=== PATIENT | female | born 1955 | race Caucasian/White ===

== ENCOUNTER → 2017-06-20 06:04 | Outpatient (CLI) | payer OTHER, SELFPAY ==
[2017-06-20 07:47] LABS: Absolute Neutrophil Count 1.1 X10^3/uL (2.0-7.7); Basophil# 0.03 X10^3/uL; Basophil% 1.1 % (0-1); Eosinophil# 0.12 X10^3/uL; Eosinophils% 4.3 % (0-5); Hematocrit 39.5 % (37-47); Hemoglobin 12.9 g/dl (12.0-15.0); Mean Corp Hgb Conc 32.7 g/gl (32-36); Mean Corpuscular Hgb 29.7 pg (27.0-32.0); Mean Corpuscular Volume 90.8 fL (81-99); Mean Platelet Vol. 9.7 fl (6.2-12.0); Monocyte# 0.33 X10^3/uL; Monocyte% 11.8 % (0-10); Neutrophil # 1.11 X10^3/uL (2.7-7.7); Neutrophil % 39.8 % (47-70); Platelet Count 228 K/mm3 (150-450); Red Blood Count 4.35 M/mm3 (4.2-5.4); White Blood Count 2.8 K/mm3 (4.4-11.0)
[2017-06-20 07:56] LABS: POSITIVE COUNT NO; POSITIVE DIFFERENTIAL NO; POSITIVE MORPHOLOGY NO
[2017-06-20 08:06] LABS: AST(SGOT) 22 U/L (15-37); Alanine Aminotransfer ALT/SGPT 23 U/L (13-56); Albumin, Serum 3.6 g/dL (3.2-5.0); Alkaline Phosphatase 92 U/L (45-117); Anion Gap 7 (5-15); BUN 14 mg/dL (7-18); BUN/Creat Ratio 29.4 RATIO (10-20); Calcium,Total 8.4 mg/dL (8.5-10.1); Chloride 107 mmol/L (98-107); Cholesterol 189 mg/dL (200); Creatinine, Serum 0.48 mg/dL (0.55-1.02); EST Glomerular Filtration Rate 140 mL/min (>60); Est Glom Filt Rate - Afr Amer 170 mL/min (>60); Globulin 3.5 g/dL (2.2-4.2); Glucose 76 mg/dL (74-106); High Density Lipoprotein 60 mg/dL; Potassium 4.1 mmol/L (3.5-5.1); Protein, Total 7.1 g/dL (6.4-8.2); Sodium Level 142 mmol/L (136-145); Triglycerides 114 mg/dL; Very Low Density Lipoprotein 23 mg/dL (5-40)
== END ==
PROVIDERS: Family Provider Family Medicine; PCP Family Medicine; Visit Provider Family Medicine
DX: Z00.00 Encounter for general adult medical examination without abnormal findings (principal)
CPT/HCPCS: 36415; 80053; 80061; 85025

== ENCOUNTER → 2017-07-14 08:21 | Outpatient (CLI) | payer OTHER, SELFPAY ==
--- NOTE | 2017-07-14 08:23 | BI_ITS ---
MAMMOGRAPHY - BILATERAL SCREENING REASON FOR EXAM: Female, 62 years old. Routine annual screening examination. PERTINENT HISTORY: Mother with breast cancer. TECHNIQUE: Digital bilateral breast trent (3D mammographic acquisition) in the CC and MLO projections. 2-D mediolateral oblique (MLO) and craniocaudad (CC) views of both breasts were obtained. CAD: Full Field Digital Mammography with Computer Added Detection was performed. COMPARISON: Comparison is made with prior study dated April 12, 2016 and February 15, 2015. FINDINGS: Breast Composition: The breasts are heterogeneously dense, which may obscure small masses. There are no dominant masses or suspicious calcifications. No other significant abnormalities are identified. There has been no significant change since the prior study. BI/SCREENING MAMM (CAD), BILAT IMPRESSION: Stable bilateral screening mammogram. Yearly follow-up mammogram recommended. (A) ASSESSMENT CATEGORY: BIRADS Category 1: Negative. A letter regarding these results will be sent to the patient by the facility within 30 days. Approximately 10% of breast cancers are not detected by mammography. A normal mammogram should not delay biopsy of a clinically suspicious abnormality. [id number] Electronically Signed: Reese Bro MD at 12:42 EDT Tel [phone], Service support ,
--- NOTE | 2017-07-14 08:27 | BD_ITS ---
STUDY: DUAL ENERGY X-RAY ABSORPTIOMETRY / DXA REASON FOR EXAM: Female, 62 years old. The patient is postmenopausal. Loss of height of 0.5 inches. TECHNIQUE: Bone Mineral Density (BMD) measurements of lumbar spine and bilateral hips were obtained. COMPARISON: None. FINDINGS: Lumbar Spine (L1-L4): g/cm2 (0.916) / T-score (-2.2) / Z-score (-0.8) Findings are suggestive of osteopenia with a moderate fracture risk. Left Femur Total: g/cm2 (0.754) / T-score (-2.0) / Z-score (-0.9) Left Femoral Neck: g/cm2 (0.797) / T-score (-1.7) / Z-score (-0.4) Right Femur Total: g/cm2 (0.756) / T-score (-2.0) / Z-score (-0.9) Right Femoral Neck: g/cm2 (0.810) / T-score (-1.6) / Z-score (0.3) BD/Dexa Bone Density Study IMPRESSION: The patient is considered osteopenic as outlined below according to World Irvin Organization (WHO) criteria with a moderate fracture risk. Reference Information: The T-score is the number of standard deviations above or below the standard which is normal for young adults at their peak bone mineral density. The World Health Organization (WHO) interprets the T-scores as follows: Above -1 Normal bone density Between -1 and -2.5 Osteopenia Equal to / or below -2.5 Osteoporosis As a practical clinical guideline, osteopenia may be graded as follows: Mild -1 through -1.5 Moderate -1.6 through -2.0 Severe -2.1 through -2.4 The Z-score is the number of standard deviations above or below age-matched controls. A Z-score of less than -1.5 would be considered abnormal. References: 1. NIH Osteoporosis and Related Bone Diseases http://www.osteo.org 2. International Society for Clinical Densitometry http://www.iscd.org 3. National Osteoporosis Foundation http://www.nof.org Electronically Signed: Reese Bro MD at 9:12 EDT Tel [phone], Service support ,
== END ==
PROVIDERS: Family Provider Family Medicine; PCP Family Medicine; Visit Provider Family Medicine
DX: Z12.31 Encounter for screening mammogram for malignant neoplasm of breast (principal); M85.80 Other specified disorders of bone density and structure, unspecified site; N95.9 Unspecified menopausal and perimenopausal disorder
CPT/HCPCS: 77063; 77067; 77080

== ENCOUNTER → 2018-07-25 | Outpatient (CLI) | payer OTHER, SELFPAY ==
--- NOTE | 2018-07-25 07:19 | BI_ITS ---
MAMMOGRAPHY - BILATERAL SCREENING 3-D TOMOSYNTHESIS REASON FOR EXAM: Female, 63 years old. Bilateral Screening 3-D tomosynthesis PERTINENT HISTORY: No significant family history. TECHNIQUE: 2-D mammograms and 3-D Tomosynthesis of the breast (s) were performed. CAD was performed. COMPARISON: July 14, 2017. FINDINGS: The breast composition is heterogeneously dense that can obscure small breast masses. Scattered benign calcifications are seen. No dense spiculated masses or suspicious microcalcifications are identified. No architectural distortion is identified. There is no skin thickening or retraction. There has been no significant change since the prior study. BI/SCREENING MAMM (CAD), BILAT IMPRESSION: No mammographic signs of malignancy. Routine yearly mammograms recommended. ASSESSMENT CATEGORY: BIRADS Category 1: Negative. A letter regarding these results will be sent to the patient by the facility within 30 days. FOLLOW UP RECOMMENDATION: Yearly follow up mammogram recommended. (A) Approximately 10% of breast cancers are not detected by mammography. A normal mammogram should not delay biopsy of a clinically suspicious abnormality. Electronically Signed: Antonio De La O MD at 12:12 EDT , Service support ,
== END | disposition home or self-care (01) ==
LOC: OPBI 07:18
PROVIDERS: Family Provider Family Medicine; PCP Family Medicine; Referring Provider Family Medicine; Visit Provider Family Medicine
DX: Z12.31 Encounter for screening mammogram for malignant neoplasm of breast (principal)
CPT/HCPCS: 77063; 77067

== ENCOUNTER 2018-11-15 06:59 | Day surgery (SDC) | payer OTHER, SELFPAY ==
[2018-11-15] VITALS (8 sets, daily range): BP systolic 93–133; BP diastolic 63–78; PULSE 47–72; RESP 14–16; TEMP 36.7–36.8; O2SAT 93–100; BMI 21.7
--- NOTE | 2018-11-15 07:41 | H&P.OPEN ---
History of Present Illness Date of Admission: 11/15/18 The patient is a 63 year old F presents for screening colonoscopy. Patient last had a colonoscopy about 10 to 12 years ago at [facility]. Patient states she has bowel movements usually daily, denies any abdominal pain/nausea/vomiting. Patient denies any blood in her stool. Patient denies any family history of colon cancer. Past Medical/Surgical History - Planned Operation Planned Operative Procedure/s: CSCOPE OPEN ACCESS Date of Operative Procedure: 11/15/18 Permit Signed: No S.O.S: No Is This Patient Having a Total Joint: No - Previous Hospitalizations/Surgeries HX Hospitalizations: No HX of Surgeries: CSCOPE. LEFT KNEE ACL. FOOT SURGERY FOR BONE SPUR. LAPAROSCOPY Any Problems With Anesthesia: No You/Your Family Experience Fever (Hyperthermia) With Anes: No Cholinesterase deficiency: No - Cardiovascular Hx Chest Pain within Last 2 months: No Hx of Irregular Heartbeat and/or Afib: No - FUNCTIONAL HEART MURMUR Hx Heart Attack: No Hx Congestive Heart Failure: No Hx Rheumatic Fever: No Hx Hypertension: No Hx Internal Defibrillator: No Hx Pacemaker: No Hx Cardiac Catheterization: No Hx Cardiac Surgery/Stents/Etc.: No Hx Stress Test: No HX Edema: No Hx Pain in Legs when Walking/Leg Cramps: No - Respiratory Chronic Cough: No HX of Shortness of Breath: No Hoarseness: No Hx Chronic Obstructive Pulmonary Disease (COPD): No - 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 Hx Asthma: No Hx Emphysema: No Hx Sleep Apnea: No Hx Oxygen Use at Home: No Hx Respiratory Tract Infection/Cold (presently): No Do You Snore Loudly (louder than talking or can be heard): No Do You Often Feel Tired/ Fatigued/ Sleepy Dring Daytime?: No Has Anyone Observed You Stop Breathing During Sleep?: No Result (for STOP score): Negative Hx Smoking: No Smoking Status: Never smoker - Gastrointestinal Hx Gastroesophageal Reflux: No - OCC HEARTBURN Hx Gastrointestinal Disorders: No Hx Gastrointestinal Bleed: No Hx Ulcer: No Hx Hiatal Hernia: No Difficulty Chewing/Swallowing: No Recent Onset of Swallowing Problems: No Special diet followed at home: No Hx Unplanned Weight Loss of 20#: No HX Unplanned Weight Gain of 20#: No - Neurological Hx Seizures: No HX Syncope/Blackout Spells/Unconsciousness: No Hx CVA/Stroke: No Hx Transient Ischemic Attacks (TIA): No Hx Multiple Sclerosis: No Hx Parkinson's Disease: No Hx Head/Neck Injury: No Hx Headaches: No Hx Back Injury/Pain: Yes - LOW BACK PAIN AT TIMES Recent Onset of Speech Difficulty: No Restless Legs: No Does patient have nerve stimulator: No Patient instructed to have device shut off: No Rep notified?: No - Blood Disorder Hx Leukemia: No Bleeding Tendencies: No Hx Deep Vein Thrombosis: No Hx High Cholesterol: No Blood Transmitted Disease: No Hx Hepatitis: No Hx Cirrhosis: No Hx Anemia: No Hx Blood Disorders: No - Reproduction : No Is Patient Lactating: No Hx Hysterectomy: No Hx Tubal Ligation: No Are You Post Menopause: Yes - Genitourinary Hx Renal Disease: No - Musculoskeletal Hx Arthritis: Yes Hx Rheumatoid Arthritis: No Hx Gout: No Recent Onset of an Orthopedic Problem: No - Endocrine Hx Diabetes: No Thyroid Disease: No Hx Steroid Therapy: No - Psycho/Social Hx Substance Use: No Hx Alcohol Use: Yes - OCC Hx Anxiety: No Hx Depression: Yes - ON MED - Miscellaneous Hx Cancer: No Recent Exposure to Contagious Disease: No Active MRSA: No Hx of C-Diff: No Any Loose Teeth: No Allergies codeine Adverse Reaction (Verified 11/15/18 07:12) FAINT - Discharge Is Pt Admitted From a [facility], or a Skilled Nursing: No Who Could Help: FAMILY After D/C, Where Do you Plan to Go: Return Home - From the PAT History Number of Risk Factors: 3 - Physical Exam General: Alert, Oriented x3, Cooperative, No apparent distress HEENT: Atraumatic Lungs: Normal air movement Cardiovascular: Regular rate Abdomen: Soft, Non Tender, Non-Distended Extremities: No clubbing, No cyanosis, No edema Neurological: Cranial nerves II-XII grossly intact Psych/Mental Status: Normal Affect Vital Signs Temp Pulse Resp BP Pulse Ox 98.3 F 72 16 133/78 H 100 11/15/18 07:16 11/15/18 07:16 11/15/18 07:16 11/15/18 07:16 11/15/18 07:16 Oxygen Delivery Method Room Air Weight: 126 lb 5.198 oz Body Mass Index (BMI) 21.7 Assessment/Plan All Active Problems (Last Reviewed 10/19/18 @ 12:00 by Gali Gonzalez) Segmental and somatic dysfunction of cervical region (Acute) Segmental and somatic dysfunction of thoracic region (Acute) Segmental and somatic dysfunction of lumbar region (Acute) 63-year-old female for screening for colon cancer Surgery Risks - Colonoscopy I discussed with the patient the risks of the procedure: Yes Risks Include but are not Limited To: Risks include but are not limited to: Bleeding, perforation requiring further surgery, inability to complete colonoscopy requiring barium enema. She had no further questions this time.
--- NOTE | 2018-11-15 08:34 | OP.ENDO_ITS ---
11/15/2018 Noemi Pruitt [address] [place] [address] Re : Colonoscopy procedure for Radha Cardona Dear Dr. Pruitt This procedure was performed on Thursday, November 15, 2018. My impressions and recommendations are as follows: Impressions : - The entire examined colon is normal on direct and retroflexion views. - No specimens collected. Recommendations : - Discharge patient to home. - Resume previous diet. - Continue present medications. - Repeat colonoscopy in 10 years for screening purposes. My findings are described in the full procedure note, which is enclosed. If I can be of further assistance, please feel free to contact me at Doctor phone number(s): , Work: . Sincerely, MD Annabel Antony MD 11/15/2018 8:34:26 AM This report has been signed electronically.
== END 2018-11-15 09:21 | disposition home or self-care (01) ==
LOC: EN 07:00 → AC 07:01
PROVIDERS: Family Provider Family Medicine; PCP Family Medicine; Referring Provider Family Medicine; Visit Provider Surgery
PROC: 0DJD8ZZ Inspection of Lower Intestinal Tract, Via Natural or Artificial Opening Endoscopic (ICD-10-PCS; CPT 45378; principal; 2018-11-15 07:55)
DX: Z12.11 Encounter for screening for malignant neoplasm of colon (principal); F32.9 Major depressive disorder, single episode, unspecified; Z79.899 Other long term (current) drug therapy
CPT/HCPCS: G0121; J7120; J2405

== ENCOUNTER → 2019-11-12 10:01 | Outpatient (CLI) | payer MEDICARE, SELFPAY ==
[2018-11-15 07:16] VITALS: BMI 21.7
[2019-11-12 13:00] LABS: Erythrocyte Sedimentation Rate 8 mm/hr (0-30)
[2019-11-12 13:01] LABS: Absolute Lymphocyte Count 0.99 X10^3/uL (0.83-4.51); Absolute Neutrophil Count 1.9 X10^3/uL (2.0-7.7); Basophil# 0.03 X10^3/uL; Basophil% 0.9 % (0-1); Eosinophil# 0.06 X10^3/uL; Eosinophils% 1.8 % (0-5); Hematocrit 38.2 % (37-47); Hemoglobin 12.8 g/dL (12.0-15.0); Lymphocyte # 0.99 X10^3/ul (4.0); Lymphocyte % 30.4 % (19-41); Mean Corp Hgb Conc 33.5 g/dL (32-36); Mean Corpuscular Hgb 30.3 pg (27.0-32.0); Mean Corpuscular Volume 90.3 fL (81-99); Mean Platelet Vol. 9.9 fl (6.2-12.0); Monocyte# 0.27 X10^3/uL; Monocyte% 8.3 % (0-10); NRBC Flagged by Analyzer 0 % (0-5); Neutrophil # 1.91 X10^3/uL (2.7-7.7); Neutrophil % 58.6 % (47-70); Platelet Count 246 K/mm3 (150-450); RBC Distribution Width CV 13.2 % (11.6-14.6); RBC Distribution Width SD 43.6 fl (35.1-43.9); Red Blood Count 4.23 M/mm3 (4.2-5.4); White Blood Count 3.3 K/mm3 (4.4-11.0)
[2019-11-12 13:09] LABS: Vitamin D,25 Hydroxy 42.5 ng/mL
[2019-11-12 13:19] LABS: ALB/GLOB Ratio 1.1 RATIO (0.9-2.4); AST(SGOT) 28 U/L (15-37); Alanine Aminotransfer ALT/SGPT 34 U/L (13-56); Albumin, Serum 3.8 g/dL (3.2-5.0); Alkaline Phosphatase 91 U/L (45-117); Anion Gap 7 (5-15); BUN 12 mg/dL (7-18); BUN/Creat Ratio 19.8 RATIO (10-20); CRP < 2.90 mg/L (0.0-3.0); Calcium,Total 8.5 mg/dL (8.5-10.1); Chloride 103 mmol/L (98-107); Cholesterol 223 mg/dL (200); EST Glomerular Filtration Rate 106 mL/min (>60); Est Glom Filt Rate - Afr Amer 128 mL/min (>60); Globulin 3.5 g/dL (2.2-4.2); Glucose 82 mg/dL (74-106); High Density Lipoprotein 60 mg/dL; Potassium 3.8 mmol/L (3.5-5.1); Protein, Total 7.3 g/dL (6.4-8.2); Sodium Level 139 mmol/L (136-145); Triglycerides 104 mg/dL; Uric Acid 3.2 mg/dL (2.6-6.0); Very Low Density Lipoprotein 21 mg/dL (5-40)
== END ==
PROVIDERS: PCP Family Medicine; Visit Provider Family Medicine
DX: M25.50 Pain in unspecified joint (principal); E78.5 Hyperlipidemia, unspecified; E55.9 Vitamin D deficiency, unspecified; R53.83 Other fatigue; Z51.81 Encounter for therapeutic drug level monitoring
CPT/HCPCS: 36415; 80053; 80061; 82306; 84550; 85025; 85652; 86140

== ENCOUNTER → 2019-11-29 15:12 | Outpatient (CLI) | payer MEDICARE, SELFPAY ==
[2018-11-15 07:16] VITALS: BMI 21.7
--- NOTE | 2019-11-29 10:00 | LES_PTH ---
PATIENT: LOURDES CARNES LOC: [facility] U#:[id number] AGE/SX: 69/F ROOM: RE11/29/[address]: Dr. Noemi Pruitt, : 1955 BED: DIS: SPEC #: [id number] RECD: 11/30/19 08:57 STATUS: ZAC REBECCA #: [id number] TESSA: 11/29/19 10:[address]: Noemi Pruitt DEPT: SURGICAL PATHOLOGY RECD BY: Warren Izquierdo Tissues: Skin of neck, NOS Procedures: Surgery Specimen Level IV HEADER OPERATION: Excision lesion right neck PRE-OP DIAGNOSIS: Rule out compound nevus vs atypical nevus TISSUE SUBMITTED: Right neck MICROSCOPIC DIAGNOSIS Skin lesion, right neck, excision: Polypoid seborrheic keratosis. AM:philomena 12/03/19 MICROSCOPIC DESCRIPTION Slides are reviewed. GROSS DESCRIPTION Received is one container labeled with the patient's name and not further designated. The specimen consists of an irregular fragment of light guthrie excised skin measuring 1 x 0.5 x 0.5 cm. The specimen is inked, bisected and totally submitted in one cassette. / AM:philmoena 11/30/19 TC:5 CPT: 33290
--- NOTE | 2019-11-29 15:14 | BI_ITS ---
MAMMOGRAPHY - BILATERAL SCREENING REASON FOR EXAM: Female, 64 years old. Routine annual screening examination. PERTINENT HISTORY: Mother with breast cancer. TECHNIQUE: Digital bilateral breast alec (3D mammographic acquisition) in the CC and MLO projections. 2-D mediolateral oblique (MLO) and craniocaudad (CC) views of both breasts were obtained. CAD: Full Field Digital Mammography with Computer Added Detection was performed. COMPARISON: Comparison is made with prior examination dated 07/25/2018 and 07/14/2017. FINDINGS: Breast Composition: The breasts are heterogeneously dense, which may obscure small masses. There are no dominant masses or suspicious calcifications. Stable benign-appearing bilateral axillary lymph. No other significant abnormalities are identified. There has been no significant change since the prior study. BI/SCREEN MAMM (CAD) W/ALEC BILAT IMPRESSION: Stable bilateral screening mammogram. Yearly follow-up mammogram recommended. (A) ASSESSMENT CATEGORY: BIRADS Category 2: Benign. A letter regarding these results will be sent to the patient by the facility within 30 days. Approximately 10% of breast cancers are not detected by mammography. A normal mammogram should not delay biopsy of a clinically suspicious abnormality. [id number] Electronically Signed: Reese Bro, at 8:34 EDT , Service support ,
--- NOTE | 2019-11-29 15:23 | BD_ITS ---
STUDY: DUAL ENERGY X-RAY ABSORPTIOMETRY / DXA REASON FOR EXAM: Female, 64 years old. HOME COMFORT ADVISOR -- DOES HIGH AMOUNT OF EXERCISE -- FAMILY HX OF OSTEO- MOTHER -- HX OF FOOT FX -- JAMIE OF 1 INCH TECHNIQUE: Bone Mineral Density (BMD) measurements of lumbar spine and bilateral hips were obtained. COMPARISON: Comparison is made with prior study dated 07/14/2017. FINDINGS: Lumbar Spine (L1-L4): g/cm2 (0.829) / T-score (-2.8) / Z-score (-1.2) Findings are suggestive of osteoporosis with a high fracture risk. Left Femur Total: g/cm2 (0.770) / T-score (-1.9) / Z-score (-0.7) Left Femoral Neck: g/cm2 (0.812) / T-score (-1.6) / Z-score (-0.1) Right Femur Total: g/cm2 (0.756) / T-score (-2.0) / Z-score (-0.8) Right Femoral Neck: g/cm2 (0.802) / T-score (-1.7) / Z-score (-0.2) The T-Scores on the most recent prior examination were: Lumbar Spine (L1-L4): There has been worsening of bone density since the previous examination. Left Femur Total: which represents an improvement of 2.1%. Right Femur Total: which represents no significant change. . BD/Dexa Bone Density Study IMPRESSION: The patient is considered osteoporotic as outlined below according to World Irvin Organization (WHO) criteria with a high fracture risk. There has been worsening of bone density since the previous examination. Reference Information: The T-score is the number of standard deviations above or below the standard which is normal for young adults at their peak bone mineral density. The World Health Organization (WHO) interprets the T-scores as follows: Above -1 Normal bone density Between -1 and -2.5 Osteopenia Equal to / or below -2.5 Osteoporosis As a practical clinical guideline, osteopenia may be graded as follows: Mild -1 through -1.5 Moderate -1.6 through -2.0 Severe -2.1 through -2.4 The Z-score is the number of standard deviations above or below age-matched controls. A Z-score of less than -1.5 would be considered abnormal. References: 1. NIH Osteoporosis and Related Bone Diseases http://www.osteo.org 2. International Society for Clinical Densitometry http://www.iscd.org 3. National Osteoporosis Foundation http://www.nof.org Electronically Signed: Reese Bro, at 15:47 EDT , Service support ,
== END ==
PROVIDERS: PCP Family Medicine; Referring Provider Family Medicine; Visit Provider Family Medicine
DX: Z12.31 Encounter for screening mammogram for malignant neoplasm of breast (principal); M81.0 Age-related osteoporosis without current pathological fracture
CPT/HCPCS: 77063; 77067; 77080; 88305

== ENCOUNTER → 2020-12-02 07:35 | Outpatient (CLI) | payer MEDICARE, SELFPAY ==
[2020-12-02 08:11] LABS: Absolute Lymphocyte Count 1.12 X10^3/uL (0.83-4.51); Absolute Neutrophil Count 1.4 X10^3/uL (2.0-7.7); Basophil# 0.03 X10^3/uL; Eosinophil# 0.06 X10^3/uL; Hematocrit 38.2 % (37-47); Hemoglobin 12.7 g/dL (12.0-15.0); Lymphocyte # 1.12 X10^3/ul (0.83-4.51); Lymphocyte % 37.8 % (19-41); Mean Corp Hgb Conc 33.2 g/dL (32-36); Mean Corpuscular Hgb 29.8 pg (27.0-32.0); Mean Corpuscular Volume 89.7 fL (81-99); Mean Platelet Vol. 9.7 fl (6.2-12.0); Monocyte# 0.34 X10^3/uL; Monocyte% 11.5 % (0-10); NRBC Flagged by Analyzer 0 % (0-5); Neutrophil # 1.41 X10^3/uL (2.7-7.7); Neutrophil % 47.7 % (47-70); Platelet Count 234 K/mm3 (150-450); RBC Distribution Width CV 12.9 % (11.6-14.6); RBC Distribution Width SD 42.4 fl (35.1-43.9); Red Blood Count 4.26 M/mm3 (4.2-5.4)
[2020-12-02 08:39] LABS: ALB/GLOB Ratio 1.1 RATIO (0.9-2.4); AST(SGOT) 18 U/L (15-37); Alanine Aminotransfer ALT/SGPT 25 U/L (13-56); Albumin, Serum 3.7 g/dL (3.2-5.0); Alkaline Phosphatase 91 U/L (45-117); Anion Gap 4 (5-15); BUN 14 mg/dL (7-18); BUN/Creat Ratio 26.7 RATIO (10-20); Calcium,Total 8.5 mg/dL (8.5-10.1); Chloride 105 mmol/L (98-107); Cholesterol 211 mg/dL (200); Creatinine, Serum 0.52 mg/dL (0.55-1.02); EST Glomerular Filtration Rate 124 mL/min (>60); Est Glom Filt Rate - Afr Amer 150 mL/min (>60); Globulin 3.5 g/dL (2.2-4.2); Glucose 85 mg/dL (74-106); High Density Lipoprotein 60 mg/dL; Potassium 3.8 mmol/L (3.5-5.1); Protein, Total 7.2 g/dL (6.4-8.2); Sodium Level 139 mmol/L (136-145); Triglycerides 84 mg/dL; Very Low Density Lipoprotein 17 mg/dL (5-40)
== END ==
PROVIDERS: PCP Family Medicine; Referring Provider Family Medicine; Visit Provider Family Medicine
DX: E78.5 Hyperlipidemia, unspecified (principal); Z51.81 Encounter for therapeutic drug level monitoring
CPT/HCPCS: 36415; 80053; 80061; 85025

== ENCOUNTER → 2020-12-17 12:20 | Outpatient (CLI) | payer MEDICARE, SELFPAY ==
--- NOTE | 2020-12-17 12:21 | BI_ITS ---
MAMMOGRAPHY - BILATERAL SCREENING REASON FOR EXAM: Female, 65 years old. Routine annual screening examination. PERTINENT HISTORY: Mother with breast cancer. TECHNIQUE: Digital bilateral breast alec (3D mammographic acquisition) in the CC and MLO projections. 2-D mediolateral oblique (MLO) and craniocaudad (CC) views of both breasts were obtained. CAD: Full Field Digital Mammography with Computer Added Detection was performed. COMPARISON: Comparison is made with prior study dated 11/29/2019 and 07/25/2018. FINDINGS: Breast Composition: The breasts are heterogeneously dense, which may obscure small masses. There are no dominant masses or suspicious calcifications. No other significant abnormalities are identified. There has been no significant change since the prior study. BI/SCRN MAMM (CAD)W/ALEC BILAT IMPRESSION: Stable bilateral screening mammogram. Yearly follow-up mammogram recommended. (A) ASSESSMENT CATEGORY: BIRADS Category 1: Negative. A letter regarding these results will be sent to the patient by the facility within 30 days. Approximately 10% of breast cancers are not detected by mammography. A normal mammogram should not delay biopsy of a clinically suspicious abnormality. [id number] Electronically Signed: Reese Bro MD at 13:07 EDT , Service support ,
== END ==
PROVIDERS: PCP Family Medicine; Referring Provider Family Medicine; Visit Provider Family Medicine
DX: Z12.31 Encounter for screening mammogram for malignant neoplasm of breast (principal)
CPT/HCPCS: 77063; 77067

== ENCOUNTER 2022-02-02 10:49 | Outpatient (CLI) | payer MEDICARE, SELFPAY ==
--- NOTE | 2022-02-02 10:51 | BI_ITS ---
MAMMOGRAPHY - BILATERAL SCREENING REASON FOR EXAM: Female, 66 years old. Routine annual screening examination. PERTINENT HISTORY: Mother with breast cancer. TECHNIQUE: Digital bilateral breast alec (3D mammographic acquisition) in the CC and MLO projections. 2-D mediolateral oblique (MLO) and craniocaudad (CC) views of both breasts were obtained. CAD: Full Field Digital Mammography with Computer Added Detection was performed. COMPARISON: Comparison is made with prior study dated 12/17/2020 and 11/29/2019. FINDINGS: Breast Composition: The breasts are heterogeneously dense, which may obscure small masses. There are no dominant masses or suspicious calcifications. No other significant abnormalities are identified. There has been no significant change since the prior study. BI/SCRN MAMM (CAD)W/ALEC BILAT IMPRESSION: Stable bilateral screening mammogram. Yearly follow-up mammogram recommended. (A) ASSESSMENT CATEGORY: BIRADS Category 1: Negative. A letter regarding these results will be sent to the patient by the facility within 30 days. Approximately 10% of breast cancers are not detected by mammography. A normal mammogram should not delay biopsy of a clinically suspicious abnormality. [id number] Electronically Signed: Reese Bro MD at 12:41 EDT ,
--- NOTE | 2022-02-02 10:57 | BD_ITS ---
STUDY: DUAL ENERGY X-RAY ABSORPTIOMETRY / DXA REASON FOR EXAM: Female, 66 years old. [id number] TECHNIQUE: Bone Mineral Density (BMD) measurements of lumbar spine and bilateral hips were obtained. COMPARISON: Comparison is made with prior study 11/29/2019. FINDINGS: Lumbar Spine (L1-L4): g/cm2 (0.758) / T-score (-2.6) / Z-score (-0.7) Findings are suggestive of osteoporosis with a high fracture risk. Left Femur Total: g/cm2 (0.721) / T-score (-1.8) / Z-score (-0.4) Left Femoral Neck: g/cm2 (0.605) / T-score (-2.2) / Z-score (-0.5) Right Femur Total: g/cm2 (0.708) / T-score (-1.9) / Z-score (-0.5) Right Femoral Neck: g/cm2 (0.574) / T-score (-2.5) / Z-score (-0.8) The T-Scores on the most recent prior examination were: Lumbar Spine (L1-L4): There has been worsening of bone density since the previous examination. Left Femur Total: which represents an improvement of 1.4%. Right Femur Total: which represents an improvement of 1.6%. BD/Dexa Bone Density Study IMPRESSION: The patient is considered osteoporotic as outlined below according to World Irvin Organization (WHO) criteria with a high fracture risk. There has been improvement of bone density since the previous examination. Reference Information: The T-score is the number of standard deviations above or below the standard which is normal for young adults at their peak bone mineral density. The World Health Organization (WHO) interprets the T-scores as follows: Above -1 Normal bone density Between -1 and -2.5 Osteopenia Equal to / or below -2.5 Osteoporosis As a practical clinical guideline, osteopenia may be graded as follows: Mild -1 through -1.5 Moderate -1.6 through -2.0 Severe -2.1 through -2.4 The Z-score is the number of standard deviations above or below age-matched controls. A Z-score of less than -1.5 would be considered abnormal. References: 1. NIH Osteoporosis and Related Bone Diseases www osteo.org 2. International Society for Clinical Densitometry www iscd.org 3. National Osteoporosis Foundation www nof.org Electronically Signed: Reese Bro MD at 9:21 EDT ,
[2022-02-02 11:57] LABS: Absolute Lymphocyte Count 1.17 X10^3/uL (0.83-4.51); Absolute Neutrophil Count 1.7 X10^3/uL (2.0-7.7); Basophil# 0.05 X10^3/uL; Basophil% 1.5 % (0-1); Eosinophil# 0.07 X10^3/uL; Eosinophils% 2.1 % (0-5); Hematocrit 37.2 % (37-47); Lymphocyte # 1.17 X10^3/ul (0.83-4.51); Lymphocyte % 35.1 % (19-41); Mean Corp Hgb Conc 34.9 g/dL (32-36); Mean Corpuscular Hgb 31.2 pg (27.0-32.0); Mean Corpuscular Volume 89.2 fL (81-99); Mean Platelet Vol. 9.5 fl (6.2-12.0); NRBC Flagged by Analyzer 0 % (0-5); Neutrophil # 1.74 X10^3/uL (2.7-7.7); Neutrophil % 52.3 % (47-70); Platelet Count 229 K/mm3 (150-450); RBC Distribution Width CV 12.8 % (11.6-14.6); RBC Distribution Width SD 42.1 fl (35.1-43.9); Red Blood Count 4.17 M/mm3 (4.2-5.4); White Blood Count 3.3 K/mm3 (4.4-11.0)
[2022-02-02 12:17] LABS: AST(SGOT) 23 U/L (15-37); Alanine Aminotransfer ALT/SGPT 24 U/L (13-56); Albumin, Serum 3.7 g/dL (3.2-5.0); Alkaline Phosphatase 105 U/L (45-117); Anion Gap 5 (5-15); BUN 12 mg/dL (7-18); BUN/Creat Ratio 22.4 RATIO (10-20); Calcium,Total 8.8 mg/dL (8.5-10.1); Chloride 102 mmol/L (98-107); Cholesterol 215 mg/dL (200); Creatinine, Serum 0.54 mg/dL (0.55-1.02); EST Glomerular Filtration Rate 121 mL/min (>60); Est Glom Filt Rate - Afr Amer 146 mL/min (>60); Globulin 3.6 g/dL (2.2-4.2); Glucose 87 mg/dL (74-106); High Density Lipoprotein 65 mg/dL; Potassium 3.9 mmol/L (3.5-5.1); Protein, Total 7.3 g/dL (6.4-8.2); Sodium Level 136 mmol/L (136-145); Triglycerides 140 mg/dL; Very Low Density Lipoprotein 28 mg/dL (5-40)
== END 2022-02-02 23:59 | disposition home or self-care (01) ==
PROVIDERS: PCP Family Medicine; Visit Provider Family Medicine
DX: Z12.31 Encounter for screening mammogram for malignant neoplasm of breast (principal); M81.0 Age-related osteoporosis without current pathological fracture; Z51.81 Encounter for therapeutic drug level monitoring
CPT/HCPCS: 36415; 77063; 77067; 77080; 80053; 80061; 85025

== ENCOUNTER → 2023-02-11 | Outpatient (CLI) | payer MEDICARE, SELFPAY ==
[2023-02-11 12:41] LABS: Absolute Lymphocyte Count 1.15 X10^3/uL (0.83-4.51); Absolute Neutrophil Count 1.5 X10^3/uL (2.0-7.7); Basophil# 0.03 X10^3/uL; Eosinophil# 0.09 X10^3/uL; Eosinophils% 2.9 % (0-5); Hematocrit 40.3 % (37-47); Lymphocyte # 1.15 X10^3/ul (0.83-4.51); Lymphocyte % 37.5 % (19-41); Mean Corp Hgb Conc 32.3 g/dL (32-36); Mean Corpuscular Volume 93.1 fL (81-99); Monocyte# 0.34 X10^3/uL; Monocyte% 11.1 % (0-10); NRBC Flagged by Analyzer 0 % (0-5); Neutrophil # 1.46 X10^3/uL (2.7-7.7); Neutrophil % 47.5 % (47-70); Platelet Count 261 K/mm3 (150-450); RBC Distribution Width CV 13.1 % (11.6-14.6); RBC Distribution Width SD 44.8 fl (35.1-43.9); Red Blood Count 4.33 M/mm3 (4.2-5.4); White Blood Count 3.1 K/mm3 (4.4-11.0)
[2023-02-11 13:13] LABS: AST(SGOT) 22 U/L (15-37); Alanine Aminotransfer ALT/SGPT 22 U/L (13-56); Albumin, Serum 3.5 g/dL (3.2-5.0); Alkaline Phosphatase 92 U/L (45-117); Anion Gap 5 (5-15); BUN 14 mg/dL (7-18); BUN/Creat Ratio 25.5 RATIO (10-20); Calcium,Total 8.7 mg/dL (8.5-10.1); Chloride 105 mmol/L (98-107); Cholesterol 209 mg/dL (200); Creatinine, Serum 0.55 mg/dL (0.55-1.02); EST Glomerular Filtration Rate 117 mL/min (>60); Est Glom Filt Rate - Afr Amer 141 mL/min (>60); Globulin 3.6 g/dL (2.2-4.2); Glucose 92 mg/dL (74-106); High Density Lipoprotein 61 mg/dL; Protein, Total 7.1 g/dL (6.4-8.2); Sodium Level 140 mmol/L (136-145); Triglycerides 93 mg/dL; Very Low Density Lipoprotein 19 mg/dL (5-40)
== END | disposition home or self-care (01) ==
LOC: BFHLAB 09:01
PROVIDERS: PCP Family Medicine; Referring Provider Family Medicine; Visit Provider Family Medicine
DX: E78.5 Hyperlipidemia, unspecified (principal); Z51.81 Encounter for therapeutic drug level monitoring
CPT/HCPCS: 36415; 80053; 80061; 85025

== ENCOUNTER → 2024-02-22 | Outpatient (CLI) | payer MEDICARE, SELFPAY ==
--- NOTE | 2024-02-22 15:21 | BI_ITS ---
MAMMOGRAPHY - BILATERAL SCREENING REASON FOR EXAM: Female, 68 years old. Routine annual screening examination. PERTINENT HISTORY: Mother with breast cancer. TECHNIQUE: Digital bilateral breast alec (3D mammographic acquisition) in the CC and MLO projections. 2-D mediolateral oblique (MLO) and craniocaudad (CC) views of both breasts were obtained. CAD: Full Field Digital Mammography with Computer Added Detection was performed. COMPARISON: Comparison is made with prior study February 02, 2022 and December 17, 2020. FINDINGS: Breast Composition: The breasts are heterogeneously dense, which may obscure small masses. There are no dominant masses or suspicious calcifications. No other significant abnormalities are identified. There has been no significant change since the prior study. BI/SCRN MAMM (CAD)W/ALEC BILAT IMPRESSION: Stable bilateral screening mammogram. Yearly follow-up mammogram recommended. (A) ASSESSMENT CATEGORY: BIRADS Category 1: Negative. A letter regarding these results will be sent to the patient by the facility within 30 days. Approximately 10% of breast cancers are not detected by mammography. A normal mammogram should not delay biopsy of a clinically suspicious abnormality. [id number] Electronically Signed: Reese Bro MD at 8:37 EST ,
== END | disposition home or self-care (01) ==
LOC: OPBI 15:20
PROVIDERS: PCP Family Medicine; Referring Provider Family Medicine; Visit Provider Family Medicine
DX: Z12.31 Encounter for screening mammogram for malignant neoplasm of breast (principal)
CPT/HCPCS: 77063; 77067

== ENCOUNTER → 2025-02-01 | Outpatient (CLI) | payer MEDICARE, SELFPAY ==
[2025-02-01 08:20] LABS: Hematocrit 41.0 % (37-47); Hemoglobin 13.6 g/dL (12.0-15.0); Immature Granulocytes Count 0.010 X10^3/uL (0.0-0.0); Mean Corp Hgb Conc 33.2 g/dL (32-36); Mean Corpuscular Volume 89.9 fL (81-99); Mean Platelet Vol. 9.6 fl (6.2-12.0); NRBC Flagged by Analyzer 0 % (0-5); Platelet Count 258 K/mm3 (150-450); RBC Distribution Width CV 12.6 % (11.6-14.6); RBC Distribution Width SD 41.5 fl (35.1-43.9); Red Blood Count 4.56 M/mm3 (4.2-5.4); White Blood Count 3.6 K/mm3 (4.4-11.0)
[2025-02-01 08:51] LABS: AST(SGOT) 29 U/L (<=31); Alanine Aminotransfer ALT/SGPT 22 U/L (<=34); Albumin, Serum 4.4 g/dL (3.4-4.8); Alkaline Phosphatase 101 U/L (35-104); Anion Gap 9 (5-15); BUN 14 mg/dL (4-19); BUN/Creat Ratio 27.2 RATIO (10-20); Calcium,Total 9.1 mg/dL (7.6-11.0); Carbon Dioxide 27.9 mmol/L (21.0-32.0); Chloride 102 mmol/L (98-108); Cholesterol 239 mg/dL (<=200); Free T3 2.9 pg/mL (2.18-3.98); Globulin 3.0 g/dL (2.2-4.2); Glucose 83 mg/dL (70-99); Low Density Lipoprotein Calc. 156 mg/dL; Potassium 4.2 mmol/L (3.3-5.1); Triglycerides 163 mg/dL; Very Low Density Lipoprotein 33 mg/dL (5-40); cholesterol:hdl ratio screen 4.43
[2025-02-04 15:08] LABS: Carbohydrate Ag 19-9 2261 32 U/mL (0-35); Carcinoembryonic Antigen 1.7 ng/mL (0.0-4.7)
== END | disposition home or self-care (01) ==
LOC: LAB 07:17
PROVIDERS: PCP Family Medicine; Referring Provider Family Medicine; Visit Provider Family Medicine
DX: E03.9 Hypothyroidism, unspecified (principal); R10.9 Unspecified abdominal pain; Z51.81 Encounter for therapeutic drug level monitoring; E78.5 Hyperlipidemia, unspecified; Q45.3 Other congenital malformations of pancreas and pancreatic duct; R53.83 Other fatigue
CPT/HCPCS: 36415; 80053; 80061; 82378; 84439; 84443; 84481; 85025; 86301

== ENCOUNTER → 2025-02-22 | Outpatient (CLI) | payer MEDICARE, SELFPAY ==
--- NOTE | 2025-02-22 07:19 | BI_ITS ---
EXAM: SCRN MAMM (CAD)W/ALEC BILAT DATE: 02/22/2025 CLINICAL HISTORY: F, Age 69 y/o , SCREENING TECHNIQUE: Procedure Code: [id number] Modality: MG Procedure: SCRN MAMM (CAD)W/ALEC BILAT COMPARISON: Prior exam(s) were compared FINDINGS: TISSUE DENSITY: The breasts are heterogeneously dense, which may obscure small masses. Bilateral Breast Mammographic Findings: No significant masses, calcifications or other abnormalities are identified. BI/SCRN MAMM (CAD)W/ALEC BILAT IMPRESSION: No mammographic evidence of malignancy in either breast. OVERALL FINAL ASSESSMENT BI-RADS 1: NEGATIVE. RECOMMENDATION: Routine annual follow-up in 1 Year Additional Recommendation none A letter with findings and recommendations will be mailed to the patient. Reading Location: [id number]
--- OUTSIDE RECORDS SUMMARY | 2025-02-22 07:36 | XMS RPT_ITS | CCD ---
Author Organization [facility] Care Team Providers Care Eeg Tech Name Role Phone Mirian Carrillo Unavailable Unavailable Mirian Carrillo Unavailable Unavailable Mirian Carrillo Unavailable Unavailable Antoinette Butler DC Unavailable Dr. Noemi Pruitt Primary Care Provider Dr. Noemi Pruitt Referring Provider [phone] Antoinette Butler Attending Provider [phone] Malys, Noemi Attending Unavailable Malys, Noemi Referring Unavailable Malys, Noemi Primary Care Unavailable Malys, Noemi Attending Unavailable Malys, Noemi Referring Unavailable Malys, Noemi Primary Care Unavailable Malys, Noemi Attending Unavailable Malys, Noemi Referring Unavailable Malys, Noemi Primary Care Unavailable Allergies Allergy Classification Reported Allergen(s) Allergy Type Date of Onset Reaction(s) Facility (5 sources) codeine drug allergy Faints Pulmonary Medicine [facility] Work Phone: (2 sources) Codeine Drug Allergy 01-25-2022 [facility] (1 source) Codeine Drug Allergy 01-03-2024 [facility] Repository Medications Current Medications Medication Drug Class(es) Dates Sig (Normalized) Sig (Original) citalopram 20 mg oral tablet (7 sources) Serotonin Reuptake Inhibitor Start: 06-05-2014 take 20 mg by mouth once daily Citalopram Active 20 MG PO DAILY February 12, 2015 12:00am fexofenadine hydrochloride 60 mg oral tablet (12 sources) Histamine-1 Receptor Antagonist Start: 06-02-2017 take 1 tablet by mouth twice daily Fexofenadine (Alejandra Allergy) 60 mg tablet Active 60 MG PO TWICE A DAY June 02, 2017 12:00am Start: 06-05-2014 take 1 tablet by shashank once daily as needed ALEJANDRA ALLERGY 180 MG TABS One tablet by mouth daily as needed for allergies FEXOFENADINE HCL [id number] Noemi Pruitt DO 12 hr guaiFENesin 600 mg extended release oral tablet (2 sources) Start: 06-02-2017 take 1 tablet by mouth once, then take 1 tablet by mouth every twelve hours Guaifenesin (Mucinex) 600 mg tablet extended release 12hr Active 600 MG PO ONCE June 02, 2017 12:00am ibuprofen 200 mg oral capsule (12 sources) Nonsteroidal Anti-inflammatory Drug Start: 06-02-2017 Ibuprofen Active 200 MG PO NEEDED June 02, 2017 12:00am Start: 01-30-2015 End: 02-20-2015 take 1 tablet by mouth four times daily as needed IBUPROFEN 800 MG TABS One tablet by mouth four times daily as needed IBUPROFEN [id number] Sony Carter DO IBUPROFEN CAPS p rn IBUPROFEN CAPS [phone] Matt Wilson Completed/Discontinued Medications Medication Drug Class(es) Dates Sig (Normalized) Sig (Original) ascorbic acid (5 sources) VITAMIN C TABS ASCORBIC ACID TABS [id number] Matt Wilson predniSONE 20 mg oral tablet (10 sources) Corticosteroid Start: 02-03-2015 End: 02-15-2015 PREDNISONE 20 MG TABS 3 tabs for 3 days, 2 tabs x 3 days, 1 tab x 3 days, 1/2 tab x 4 days PREDNISONE [id number] Sony Carter DO Start: 01-13-2015 End: 01-22-2015 PREDNISONE 20 MG TABS 2 tabs x 3 days, 1 tab x 3 days, 1/2 tab x 4 days PREDNISONE [id number] Sony Carter DO triamcinolone acetonide 5 mg/ml topical cream (10 sources) Corticosteroid Start: 01-13-2015 End: 05-22-2015 TRIAMCINOLONE ACETONIDE 0.5 % CREA apply to affected area twice daily TRIAMCINOLONE ACETONIDE [id number] Sony Carter DO Problems Active Problems Problem Classification Problem Date Documented Da te Episodic/Chronic Mood disorders (5 sources) Depressive disorder; Translations: [Major depressive disorder, single episode, unspecified] 06-05-2014 Chronic Other bone disease and musculoskeletal deformities (14 sources) Segmental and somatic dysfunction; Translations: [Segmental and somatic dysfunction of cervical region] Onset: 04-29-2016 04-29-2016 Episodic Other bone disease and musculoskeletal deformities (2 sources) Segmental and somatic dysfunction of cervical region; Translations: [Nonallopathic lesions, cervical region] Episodic Other bone disease and musculoskeletal deformities (2 sources) Segmental and somatic dysfunction of lumbar region; Translations: [Nonallopathic lesions, lumbar region] Episodic Other bone disease and musculoskeletal deformities (2 sources) Segmental and somatic dysfunction of thoracic region; Translations: [Nonallopathic lesions, thoracic region] Episodic Other screening for suspected conditions (not mental disorders or infectious disease) (2 sources) Encounter for screening mammogram for malignant neoplasm of breast; Translations: [Encounter for screening mammogram for malignant neoplasm of breast] Onset: 03-22-2024 Episodic Spondylosis; intervertebral disc disorders; other back problems (4 sources) Backache; Translations: [Dorsalgia, unspecified] Episodic Thyroid disorders (1 source) Hypothyroidism, unspecified; Translations: [Hypothyroidism, unspecified] Onset: 02-11-2025 Chronic Unclassified (3 sources) Screening for malignant neoplasm of breast ; Translations: [Other specified health status] Onset: 01-30-2015 01-30-2015 Unclassified (2 sources) Screening - health check; Translations: [Encounter for general adult medical examination without abnormal findings] Onset: 03-03-2015 03-03-2015 Past or Other Problems Problem Classification Problem Date Documented Da te Episodic/Chronic Allergic reactions (5 sources) Dermatitis; Translations: [Dermatitis, unspecified] Onset: 01-13-2015 Resolved: 01-27-2015 01-13-2015 Episodic Immunizations and screening for infectious disease (5 sources) Needs influenza immunization; Translations: [Underimmunization status] Onset: 03-03-2015 03-03-2015 Episodic Medical examination/evaluation (3 sources) Encounter for general adult medical examination without abnormal findings; Translations: [Encounter for general adult medical examination without abnormal findings] Onset: 03-03-2015 03-03-2015 Episodic Other bone disease and musculoskeletal deformities (14 sources) Osteopenia; Translations: [Segmental and somatic dysfunction] Onset: 06-05-2014 06-05-2014 Episodic Other inflammatory condition of skin (5 sources) Erythema nodosum; Translations: [Erythema nodosum] Onset: 01-30-2015 01-30-2015 Episodic Other lower respiratory disease (5 sources) Lung mass; Translations: [Other nonspecific abnormal finding of lung field] Onset: 01-31-2015 01-31-2015 Episodic Skin and subcutaneous tissue infections (5 sources) Abscess of axilla; Translations: [Cutaneous abscess of left axilla] Onset: 01-13-2015 Resolved: 01-27-2015 01-13-2015 Episodic Results Test Name Value Interpretation Reference Range Facility CA 19-9 Serial Monitoron CA 19-9 32 U/mL Normal 0-35 [facility] Comment on above: Result Comment: [facility] Electrochemiluminescence Immunoassay (ECLIA) Values obtained with different assay methods or kits cannot be used interchangeably. Results cannot be interpreted as absolute evidence of the presence or absence of malignant disease. Performed By: #### L 3100.2300, L100.0100, L501.9520, L500.4100, L501.16829, L500.4050, L506.0400, L3100.5017 #### [facility] [address] [facility] [facility] [place], [place], [id number] Carcinoembryonic Antigenon 1 04-06-2024 CEA 1.7 ng/mL Normal 0.0-4.7 [facility] Comment on above: Result Comment: Nons mokers <3.9 Smokers <5.6 [facility] Electrochemiluminescence Immunoassay (ECLIA) Values obtained with different assay methods or kits cannot be used interchangeably. Results cannot be interpreted as absolute evidence of the presence or absence of malignant disease. Performed at: [address] [id number] Can Line Examiner: Tommy Barr PhD, Phone: [phone] Performed By: #### L 3100.2300, L100.0100, L501.9520, L500.4100, L501.07103, L500.4050, L506.0400, L3100.5017 #### [facility] [address] [place], [address] CBC W/Diff, Automatedon 10-3 -2024 Absolute Lymph 1.56 X10 3/uL Normal 0.83-4.51 [facility] Comment on above: Performed By: #### L 3100.2300, L100.0100, L501.9520, L500.4100, L501.51414, L500.4050, L506.0400, L3100.5017 #### [facility] [address] [place], [address] Absolute Neut 1.5 X10 3/uL Low 2.0-7.7 [facility] Comment on above: Performed By: #### L 3100.2300, L100.0100, L501.9520, L500.4100, L501.06486, L500.4050, L506.0400, L3100.5017 #### [facility] [address] [place], [address] Basophils/100 WBC (Bld) 1.1 % High 0-1 [facility] Comment on above: Performed By: #### L 3100.2300, L100.0100, L501.9520, L500.4100, L501.98074, L500.4050, L506.0400, L3100.5017 #### [facility] [address] [place], [address] Eosinophils/100 WBC (Bld) 4.2 % Normal 0-5 [facility] Comment on above: Performed By: #### L 3100.2300, L100.0100, L501.9520, L500.4100, L501.93945, L500.4050, L506.0400, L3100.5017 #### [facility] [address] [place], [address] Erythrocyte distribution width (RBC) [Ratio] 12.6 % Normal 11.6-14.6 [facility] Comment on above: Performed By: #### L 3100.2300, L100.0100, L501.9520, L500.4100, L501.43253, L500.4050, L506.0400, L3100.5017 #### [facility] [address] [place], [address] Hematocrit (Bld) [Volume fraction] 41.0 % Normal 37-47 [facility] Comment on above: Performed By: #### L 3100.2300, L100.0100, L501.9520, L500.4100, L501.90389, L500.4050, L506.0400, L3100.5017 #### [facility] [address] [facility] [place], [address] Hemoglobin (Bld) [Mass/Vol] 13.6 g/dL Normal 12.0-15.0 [facility] Comment on above: Performed By: #### L 3100.2300, L100.0100, L501.9520, L500.4100, L501.06504, L500.4050, L506.0400, L3100.5017 #### [facility] [address] [facility] [place], [address] IG% 0.300 Normal 0.0-0.9 [facility] Comment on above: Result Comment: IG% - Immature Granulocytes (promyelocytes, myelocytes and metamyelocytes) > 1% indicates that a LEFT SHIFT is Present. Performed By: #### L 3100.2300, L100.0100, L501.9520, L500.4100, L501.14512, L500.4050, L506.0400, L3100.5017 #### [facility] [address] [facility] [place], [address] Lymphocytes/100 WBC (Bld) 43.3 % High 19-41 [facility] Comment on above: Performed By: #### L 3100.2300, L100.0100, L501.9520, L500.4100, L501.80802, L500.4050, L506.0400, L3100.5017 #### [facility] [address] [place], [address] MCH (RBC) [Entitic mass] 29.8 pg Normal 27.0-32.0 [facility] Comment on above: Performed By: #### L 3100.2300, L100.0100, L501.9520, L500.4100, L501.48618, L500.4050, L506.0400, L3100.5017 #### [facility] [address] [place], [address] MCHC (RBC) [Mass/Vol] 33.2 g/dL Normal 32-36 [facility] Comment on above: Performed By: #### L 3100.2300, L100.0100, L501.9520, L500.4100, L501.04778, L500.4050, L506.0400, L3100.5017 #### [facility] [address] [place], [address] MCV (RBC) [Entitic vol] 89.9 fL Normal 81-99 [facility] Comment on above: Performed By: #### L 3100.2300, L100.0100, L501.9520, L500.4100, L501.25041, L500.4050, L506.0400, L3100.5017 #### [facility] [address] [place], [address] Monocytes/100 WBC (Bld) 10.3 % High 0-10 [facility] Comment on above: Performed By: #### L 3100.2300, L100.0100, L501.9520, L500.4100, L501.05235, L500.4050, L506.0400, L3100.5017 #### [facility] [address] [place], [address] Neutrophils/100 WBC (Bld) 40.8 % Low 47-70 [facility] Comment on above: Performed By: #### L 3100.2300, L100.0100, L501.9520, L500.4100, L501.49580, L500.4050, L506.0400, L3100.5017 #### [facility] [address] [place], [address] Nucleated RBC (Bld) [#/Vol] 0 10*3/uL Normal 0-5 [facility] Comment on above: Performed By: #### L 3100.2300, L100.0100, L501.9520, L500.4100, L501.55913, L500.4050, L506.0400, L3100.5017 #### [facility] [address] [place], [address] Platelet mean volume (Bld) [Entitic vol] 9.6 fL Normal 6.2-12.0 [facility] Comment on above: Performed By: #### L 3100.2300, L100.0100, L501.9520, L500.4100, L501.36862, L500.4050, L506.0400, L3100.5017 #### [facility] [address] [place], [address] Platelets (Bld) [#/Vol] 258 10*3/uL Normal 150-450 [facility] Comment on above: Performed By: #### L 3100.2300, L100.0100, L501.9520, L500.4100, L501.90436, L500.4050, L506.0400, L3100.5017 #### [facility] [address] [place], [address] RBC (Bld) [#/Vol] 4.56 10*6/uL Normal 4.2-5.4 [facility] Comment on above: Performed By: #### L 3100.2300, L100.0100, L501.9520, L500.4100, L501.47130, L500.4050, L506.0400, L3100.5017 #### [facility] [address] [place], [address] RDW SD 41.5 fl Normal 35.1-43.9 [facility] Comment on above: Performed By: #### L 3100.2300, L100.0100, L501.9520, L500.4100, L501.36651, L500.4050, L506.0400, L3100.5017 #### [facility] [address] [place], [place], [id number] (107) WBC (Bld) [#/Vol] 3.6 10*3/uL Low 4.4-11.0 [facility] Comment on above: Performed By: #### L 3100.2300, L100.0100, L501.9520, L500.4100, L501.15402, L500.4050, L506.0400, L3100.5017 #### [facility] [address] [place], [address] Comprehensive Metabolic Prof [facility] 02-01-2025 Albumin [Mass/Vol] 4.4 g/dL Normal 3.4-4.8 [facility] Comment on above: Performed By: #### L 3100.2300, L100.0100, L501.9520, L500.4100, L501.96200, L500.4050, L506.0400, L3100.5017 #### [facility] [address] [place], [address] Albumin/Globulin [Mass ratio] 1.4 {ratio} Normal 0.9-2.4 [facility] Comment on above: Performed By: #### L 3100.2300, L100.0100, L501.9520, L500.4100, L501.67029, L500.4050, L506.0400, L3100.5017 #### [facility] [address] [place], [address] ALK PHOS 101 U/L Normal 35-104 [facility] Comment on above: Performed By: #### L 3100.2300, L100.0100, L501.9520, L500.4100, L501.76797, L500.4050, L506.0400, L3100.5017 #### [facility] [address] [place], [address] ALT [Catalytic activity/Vol] 22 U/L Normal <=34 [facility] Comment on above: Performed By: #### L 3100.2300, L100.0100, L501.9520, L500.4100, L501.81450, L500.4050, L506.0400, L3100.5017 #### [facility] [address] [place], [address] AST [Catalytic activity/Vol] 29 U/L Normal <=31 [facility] Comment on above: Performed By: #### L 3100.2300, L100.0100, L501.9520, L500.4100, L501.16364, L500.4050, L506.0400, L3100.5017 #### [facility] [address] [place], [address] Bilirubin [Mass/Vol] 0.28 mg/dL Normal 0.00-1.30 [facility] Comment on above: Performed By: #### L 3100.2300, L100.0100, L501.9520, L500.4100, L501.91088, L500.4050, L506.0400, L3100.5017 #### [facility] [address] [place], [address] BUN/CRE 27.2 RATIO High 10-20 [facility] Comment on above: Performed By: #### L 3100.2300, L100.0100, L501.9520, L500.4100, L501.75767, L500.4050, L506.0400, L3100.5017 #### [facility] [address] [place], [address] Calcium [Mass/Vol] 9.1 mg/dL Normal 7.6-11.0 [facility] Comment on above: Performed By: #### L 3100.2300, L100.0100, L501.9520, L500.4100, L501.22770, L500.4050, L506.0400, L3100.5017 #### [facility] [address] [place], [address] Chloride [Moles/Vol] 102 mmol/L Normal 98-108 [facility] Comment on above: Performed By: #### L 3100.2300, L100.0100, L501.9520, L500.4100, L501.99800, L500.4050, L506.0400, L3100.5017 #### [facility] [address] [place], [address] CO2 [Moles/Vol] 27.9 mmol/L Normal 21.0-32.0 [facility] Comment on above: Performed By: #### L 3100.2300, L100.0100, L501.9520, L500.4100, L501.22187, L500.4050, L506.0400, L3100.5017 #### [facility] [address] [place], [address] Creatinine [Mass/Vol] 0.51 mg/dL Low 0.70-1.20 [facility] Comment on above: Performed By: #### L 3100.2300, L100.0100, L501.9520, L500.4100, L501.52038, L500.4050, L506.0400, L3100.5017 #### [facility] [address] [place], [address] GAP 9 Normal 5-15 [facility] Comment on above: Performed By: #### L 3100.2300, L100.0100, L501.9520, L500.4100, L501.62985, L500.4050, L506.0400, L3100.5017 #### [facility] [address] [place], [address] GFR/1.73 sq M.predicted among non-blacks MDRD (S/P/Bld) [Vol rate/Area] 100 mL/min/{1.73_m2} Normal >60 [facility] Comment on above: Result Comment: mL/m in/1.73m2 CKD-EPI Creatinine Equation (2020) Performed By: #### L 3100.2300, L100.0100, L501.9520, L500.4100, L501.32493, L500.4050, L506.0400, L3100.5017 #### [facility] [address] [place], [place], [id number] Globulin (S) [Mass/Vol] 3.0 g/dL Normal 2.2-4.2 [facility] Comment on above: Performed By: #### L 3100.2300, L100.0100, L501.9520, L500.4100, L501.32603, L500.4050, L506.0400, L3100.5017 #### [facility] [address] [place], [address] Glucose [Mass/Vol] 83 mg/dL Normal 70-99 [facility] Comment on above: Performed By: #### L 3100.2300, L100.0100, L501.9520, L500.4100, L501.89494, L500.4050, L506.0400, L3100.5017 #### [facility] [address] [place], [address] Potassium [Moles/Vol] 4.2 mmol/L Normal 3.3-5.1 [facility] Comment on above: Performed By: #### L 3100.2300, L100.0100, L501.9520, L500.4100, L501.27161, L500.4050, L506.0400, L3100.5017 #### [facility] [address] [place], [address] Sodium [Moles/Vol] 139 mmol/L Normal 133-145 [facility] Comment on above: Performed By: #### L 3100.2300, L100.0100, L501.9520, L500.4100, L501.60838, L500.4050, L506.0400, L3100.5017 #### [facility] [address] [place], [address] T PROT 7.4 g/dL Normal 5.9-8.4 [facility] Comment on above: Performed By: #### L 3100.2300, L100.0100, L501.9520, L500.4100, L501.10422, L500.4050, L506.0400, L3100.5017 #### [facility] [address] [place], [address] Urea nitrogen [Mass/Vol] 14 mg/dL Normal 4-19 [facility] Comment on above: Performed By: #### L 3100.2300, L100.0100, L501.9520, L500.4100, L501.31335, L500.4050, L506.0400, L3100.5017 #### [facility] [address] [place], [address] Free T3on 02-01-2025 Free T3 [Mass/Vol] 2.9 pg/mL Normal 2.18-3.98 [facility] Comment on above: Performed By: #### L 3100.2300, L100.0100, L501.9520, L500.4100, L501.97368, L500.4050, L506.0400, L3100.5017 #### [facility] [address] [place], [address] Lipid Profileon 02-01-2025 CHOL:HDL 4.43 Normal [facility] Comment on above: Performed By: #### L 3100.2300, L100.0100, L501.9520, L500.4100, L501.37153, L500.4050, L506.0400, L3100.5017 #### [facility] [address] [place], [address] Cholesterol [Mass/Vol] 239 mg/dL High <=200 [facility] Comment on above: Result Comment: Chol esterol level, Desirable <200 mg/dL Borderline high cholesterol 200-239 mg/dL High cholesterol >=240 mg/dL Recommendations of the NCEP Adult Treatment Panel for the following risk-cutoff thresholds for the [place] population. Performed By: #### L 3100.2300, L100.0100, L501.9520, L500.4100, L501.50324, L500.4050, L506.0400, L3100.5017 #### [facility] [address] [place], [address] Cholesterol in HDL [Mass/Vol] 54 mg/dL Normal [facility] Comment on above: Result Comment: [place] Cholesterol Education Program (NCEP) guidelines: <40 mg/dL: Low HDL-cholesterol (major risk factor for CHD) >= 60 mg/dL: High HDL-cholesterol (negative risk factor for CHD) HDL-cholesterol is affected by a number of factors, e.g. smoking, exercise, hormones, sex and age. Performed By: #### L 3100.2300, L100.0100, L501.9520, L500.4100, L501.41888, L500.4050, L506.0400, L3100.5017 #### [facility] [address] [place], [address] Cholesterol in LDL [Mass/Vol] 156 mg/dL Normal [facility] Comment on above: Result Comment: Bord utlyia=859-831 mg/dL Higher Znhp=716 mg/dL or greater Hidalgo Equation 2020 for LDL-C Performed By: #### L 3100.2300, L100.0100, L501.9520, L500.4100, L501.65074, L500.4050, L506.0400, L3100.5017 #### [facility] [address] [place], [address] Cholesterol in VLDL [Mass/Vol] 33 mg/dL Normal 5-40 [facility] Comment on above: Performed By: #### L 3100.2300, L100.0100, L501.9520, L500.4100, L501.40360, L500.4050, L506.0400, L3100.5017 #### [facility] [address] [place], [address] Triglyceride [Mass/Vol] 163 mg/dL Normal [facility] Comment on above: Result Comment: The drugs N-Acetylcysteine and Metamizole may falsely depress this assay. Normal range: <150 mg/dL Borderline High: 150-199 mg/dL High: 200-499 mg/dL Very High: >500 mg/dL Performed By: #### L 3100.2300, L100.0100, L501.9520, L500.4100, L501.97552, L500.4050, L506.0400, L3100.5017 #### [facility] [address] [place], [address] T4 Free Directon 02-01-2025 T4 FREE DIRECT 0.90 ng/dL Normal 0.76-1.46 [facility] Comment on above: Performed By: #### L 3100.2300, L100.0100, L501.9520, L500.4100, L501.30700, L500.4050, L506.0400, L3100.5017 #### [facility] [address] [facility] [place], [address] Thyroid Stim Hormone (TSH)on 02-01-2025 TSH 3.970 uIU/mL Normal 0.300-4.20 0 [facility] Comment on above: Performed By: #### L 3100.2300, L100.0100, L501.9520, L500.4100, L501.29808, L500.4050, L506.0400, L3100.5017 #### [facility] [address] [facility] [place], [address] SCRN MAMM (CAD)W/ALEC BILATo n 02-22-2024 SCRN MAMM (CAD)W/ALEC BILAT [facility] [address] [place] [address] SCRN MAMM (CAD)W/ALEC BILAT MR#: [id number] Acct: [id number] Name: LOURDES CARNES Rep #: [id number] : 1955 F 68 From: Reese sanders MD PCP: Dr. Noemi Pruitt, Status: [facility] Study: SCRN MAMM (CAD)W/ALEC BILAT Date of Exam: 02/03 Exam# [id number] Ordering Dr: Noemi Pruitt DO [id number] MAMMOGRAPHY - BILATERAL SCREENING REASON FOR EXAM: Female, 68 years old. Routine annual screening examination. PERTINENT HISTORY: Mother with breast cancer. TECHNIQUE: Digital bilateral breast alec (3D mammographic acquisition) in the CC and MLO projections. 2-D mediolateral oblique (MLO) and craniocaudad (CC) views of both breasts were obtained. CAD: Full Field Digital Mammography with Computer Added Detection was performed. COMPARISON: Comparison is made with prior study February 02, 2022 and December 17, 2020. FINDINGS: Breast Composition: The breasts are heterogeneously dense, which may obscure small masses. There are no dominant masses or suspicious calcifications. No other significant abnormalities are identified. There has been no significant change since the prior study. BI/SCRN MAMM (CAD)W/ALEC BILAT IMPRESSION: Stable bilateral screening mammogram. Yearly follow-up mammogram recommended. (A) ASSESSMENT CATEGORY: BIRADS Category 1: Negative. A letter regarding these results will be sent to the patient by the facility within 30 days. Approximately 10% of breast cancers are not detected by mammography. A normal mammogram should not delay biopsy of a clinically suspicious abnormality. [id number] Electronically Signed: Reese Bro MD at 8:37 EST , CC: Dr. Noemi Pruitt DO Finisher Denture: Signed Normal [facility] Absolute lymphocyte countOrd ered By: Noemi Pruitt on 02-11-2023 Lymphocytes Auto (Unsp spec) [#/Vol] 1.15 10*3/uL 0.83-4.51 [facility] Basophil percentageOrdered B y: Noemi Pruitt on 02-11-2023 Basophils/100 WBC (Bld) 1.0 % 0-1 [facility] Bilirubin [Mass/Vol] 0.30 mg/dL 0.20-1.00 [facility] Comment on above: For patients on eltr ombopag therapy, use of Dimension Gause TBIL is not recommended. Chloride [Moles/Vol] 105 mmol/L 98-107 [facility] Cholesterol [Mass/Vol] 209 mg/dL <200 [facility] Comment on above: <200 mg/dL Desirable 200-240 mg/dL Borderline >240 mg/dL High Risk Eosinophils/100 WBC (Bld) 2.9 % 0-5 [facility] Glucose [Mass/Vol] 92 mg/dL 74-106 [facility] Neutrophils (Bld) [#/Vol] 1.5 10*3/uL 2.0-7.7 [facility] Neutrophils/100 WBC (Bld) 47.5 % 47-70 [facility] Potassium [Moles/Vol] 4.0 mmol/L 3.5-5.1 [facility] Protein [Mass/Vol] 7.1 g/dL 6.4-8.2 [facility] Sodium [Moles/Vol] 140 mmol/L 136-145 [facility] Triglyceride [Mass/Vol] 93 mg/dL <199 [facility] Comment on above: The drugs N-Acetylcy steine and Metamizole may falsely depress this assay.Serum Triglycerides Reference Interval Normal <150 mg/dL Borderline high 150 - 199 mg/dL High 200 - 499 mg/dL Very High > or = 500 mg/dL WBC (Bld) [#/Vol] 3.1 10*3/uL 4.4-11.0 [facility] Blood erythrocytes count (nu mber/volume)Ordered By: Noemi Pruitt on 02-11-2023 RBC (Bld) [#/Vol] 4.33 10*6/uL 4.2-5.4 [facility] Blood hemoglobin measurement (mass/volume)Ordered By: Noemi Pruitt on 02-11-2023 Hemoglobin (Bld) [Mass/Vol] 13.0 g/dL 12.0-15.0 [facility] Blood lymphocytes/100 leukoc ytesOrdered By: Noemi Pruitt on 02-11-2023 Lymphocytes/100 WBC (Bld) 37.5 % 19-41 [facility] Blood monocytes/100 leukocyt esOrdered By: Noemi Pruitt on 02-11-2023 Monocytes/100 WBC (Bld) 11.1 % 0-10 [facility] Blood platelet mean volumeOr dered By: Noemi Pruitt on 02-11-2023 Platelet mean volume (Bld) [Entitic vol] 10.0 fL 6.2-12.0 [facility] Determination of erythrocyte mean corpuscular volume (MCV)Ordered By: Noemi Pruitt on 02-11-2023 MCV (RBC) [Entitic vol] 93.1 fL 81-99 [facility] Hematocrit Auto (Bld) [Volum e fraction]Ordered By: Noemi Pruitt on 02-11-2023 Hematocrit (Bld) [Volume fraction] 40.3 % 37-47 [facility] Laboratory - Chemistry and C hemistry - challengeOrdered By: Noemi Pruitt on 02-11-2023 ALP [Catalytic activity/Vol] 92 U/L 45-117 [facility] ALT [Catalytic activity/Vol] 22 U/L 13-56 [facility] CO2 [Moles/Vol] 30.0 mmol/L 21.0-32.0 [facility] Globulin (S) [Mass/Vol] 3.6 g/dL 2.2-4.2 [facility] Urea nitrogen/Creatinine [Mass ratio] 25.5 mg/mg 10-20 [facility] Laboratory - Hematology and Cell countsOrdered By: Noemi Pruitt on 02-11-2023 Erythrocyte distribution width (RBC) [Entitic vol] 44.8 fL 35.1-43.9 [facility] Erythrocyte distribution width (RBC) [Ratio] 13.1 % 11.6-14.6 [facility] Immature granulocytes/100 WBC (Bld) 0.000 % 0.0-0.9 [facility] Comment on above: IG% - Immature Granu locytes (promyelocytes, myelocytes and metamyelocytes) > 1% indicates that a LEFT SHIFT is Present. MCH (RBC) [Entitic mass] 30.0 pg 27.0-32.0 [facility] Nucleated RBC/100 WBC (Bld) [Ratio] 0 % 0-5 [facility] MCHC Auto (RBC) [Mass/Vol]Or dered By: Noemi Pruitt on 02-11-2023 MCHC (RBC) [Mass/Vol] 32.3 g/dL 32-36 [facility] No Panel InformationOrdered By: Noemi Pruitt on 02-11-2023 Estimated GFR (MDRD) Amer 141 mL/min >60 [facility] Comment on above: GFR Calc Estimated GFR (MDRD) Non-Af Amer 117 mL/min >60 [facility] Comment on above: Non- GFR Calc Platelets bldOrdered By: Shawnee Pruitt on 02-11-2023 Platelets (Bld) [#/Vol] 261 10*3/uL 150-450 [facility] Serum or plasma albumin skinny urement (mass/volume)Ordered By: Noemi Pruitt on 02-11-2023 Albumin [Mass/Vol] 3.5 g/dL 3.2-5.0 [facility] Serum or plasma albumin/glob ulin mass ratioOrdered By: Noemi Pruitt on 02-11-2023 Albumin/Globulin [Mass ratio] 1.0 {ratio} 0.9-2.4 [facility] Serum or plasma calcium skinny urement (mass/volume)Ordered By: Noemi Pruitt on 02-11-2023 Calcium [Mass/Vol] 8.7 mg/dL 8.5-10.1 [facility] Serum or plasma cholesterol in HDL measurement (mass/volume)Ordered By: Noemi Pruitt on 02-11-2023 Cholesterol in HDL [Mass/Vol] 61 mg/dL >40 [facility] Comment on above: The drugs N-Acetylcy steine and Metamizole may falsely depress this assay. Reference Range HDL <40 mg/dL Low HDL Cholesterol HDL >or= 60 mg/dL High HDL Cholesterol Serum or plasma cholesterol in VLDL measurement (mass/volume)Ordered By: Noemi Pruitt on 02-11-2023 Cholesterol in VLDL [Mass/Vol] 19 mg/dL 5-40 [facility] Serum or plasma creatinine m easurement (mass/volume)Ordered By: Noemi Pruitt on 02-11-2023 Creatinine [Mass/Vol] 0.55 mg/dL 0.55-1.02 [facility] Comment on above: The validity of the calculated GFR & GFRAA in patients over 70 years has not been determined. Clinical correlation is essential. Serum or plasma low density lipoprotein (LDL) cholesterol measurement (mass/volume)Ordered By: Noemi Pruitt on 02-11-2023 Cholesterol in LDL [Mass/Vol] 129 mg/dL 0-130 [facility] Serum or plasma urea nitroge n measurement (mass/volume)Ordered By: Noemi Pruitt on 02-11-2023 Urea nitrogen [Mass/Vol] 14 mg/dL 7-18 [facility] Thin prep Papanicolaou smear with manual screeningOrdered By: Noemi Pruitt on 02-11-2023 Thin prep Papanicolaou smear with manual screening 22 U/L 15-37 [facility] Thin prep Papanicolaou smear with manual screening 5 5-15 [facility] Absolute lymphocyte counton 02-02-2022 Lymphocytes Auto (Unsp spec) [#/Vol] 1.17 10*3/uL 0.83-4.51 [facility] Work Phone: Basophil percentageon 2021 Basophils/100 WBC (Bld) 1.5 % 0-1 [facility] Work Phone: Bilirubin [Mass/Vol] 0.30 mg/dL 0.20-1.00 [facility] Work Phone: Comment on above: For patients on eltr ombopag therapy, use of Dimension Gause TBIL is not recommended. Chloride [Moles/Vol] 102 mmol/L 98-107 [facility] Work Phone: Cholesterol [Mass/Vol] 215 mg/dL <200 [facility] Work Phone: Comment on above: <200 mg/dL Desirable 200-240 mg/dL Borderline >240 mg/dL High Risk Eosinophils/100 WBC (Bld) 2.1 % 0-5 [facility] Work Phone: Glucose [Mass/Vol] 87 mg/dL 74-106 [facility] Work Phone: Neutrophils (Bld) [#/Vol] 1.7 10*3/uL 2.0-7.7 [facility] Work Phone: Neutrophils/100 WBC (Bld) 52.3 % 47-70 [facility] Work Phone: Potassium [Moles/Vol] 3.9 mmol/L 3.5-5.1 [facility] Work Phone: Protein [Mass/Vol] 7.3 g/dL 6.4-8.2 [facility] Work Phone: Sodium [Moles/Vol] 136 mmol/L 136-145 [facility] Work Phone: Triglyceride [Mass/Vol] 140 mg/dL <199 [facility] Work Phone: Comment on above: The drugs N-Acetylcy steine and Metamizole may falsely depress this assay.Serum Triglycerides Reference Interval Normal <150 mg/dL Borderline high 150 - 199 mg/dL High 200 - 499 mg/dL Very High > or = 500 mg/dL WBC (Bld) [#/Vol] 3.3 10*3/uL 4.4-11.0 [facility] Work Phone: Blood erythrocytes count (nu mber/volume)on 02-02-2022 RBC (Bld) [#/Vol] 4.17 10*6/uL 4.2-5.4 [facility] Work Phone: Blood hemoglobin measurement (mass/volume)on 02-02-2022 Hemoglobin (Bld) [Mass/Vol] 13.0 g/dL 12.0-15.0 [facility] Work Phone: Blood lymphocytes/100 leukoc yteson 02-02-2022 Lymphocytes/100 WBC (Bld) 35.1 % 19-41 [facility] Work Phone: Blood monocytes/100 leukocyt eson 02-02-2022 Monocytes/100 WBC (Bld) 9.0 % 0-10 [facility] Work Phone: Blood platelet mean volumeon 02-02-2022 Platelet mean volume (Bld) [Entitic vol] 9.5 fL 6.2-12.0 [facility] Work Phone: Determination of erythrocyte mean corpuscular volume (MCV)on 02-02-2022 MCV (RBC) [Entitic vol] 89.2 fL 81-99 [facility] Work Phone: [phone] Hematocrit Auto (Bld) [Volum e fraction]on 02-02-2022 Hematocrit (Bld) [Volume fraction] 37.2 % 37-47 [facility] Work Phone: Laboratory - Chemistry and C hemistry - challengeon 02-02-2022 ALP [Catalytic activity/Vol] 105 U/L 45-117 [facility] Work Phone: ALT [Catalytic activity/Vol] 24 U/L 13-56 [facility] Work Phone: [phone] CO2 [Moles/Vol] 29.0 mmol/L 21.0-32.0 [facility] Work Phone: [phone] Globulin (S) [Mass/Vol] 3.6 g/dL 2.2-4.2 [facility] Work Phone: Urea nitrogen/Creatinine [Mass ratio] 22.4 mg/mg 10-20 [facility] Work Phone: Laboratory - Hematology and Cell countson 02-02-2022 Erythrocyte distribution width (RBC) [Entitic vol] 42.1 fL 35.1-43.9 [facility] Work Phone: Erythrocyte distribution width (RBC) [Ratio] 12.8 % 11.6-14.6 [facility] Work Phone: Immature granulocytes/100 WBC (Bld) 0.000 % 0.0-0.9 [facility] Work Phone: Comment on above: IG% - Immature Granu locytes (promyelocytes, myelocytes and metamyelocytes) > 1% indicates that a LEFT SHIFT is Present. MCH (RBC) [Entitic mass] 31.2 pg 27.0-32.0 [facility] Work Phone: Nucleated RBC/100 WBC (Bld) [Ratio] 0 % 0-5 [facility] Work Phone: MCHC Auto (RBC) [Mass/Vol]on 02-02-2022 MCHC (RBC) [Mass/Vol] 34.9 g/dL 32-36 [facility] Work Phone: No Panel Informationon 02-02 Estimated GFR (MDRD) Amer 146 mL/min >60 [facility] Work Phone: Comment on above: GFR Calc Estimated GFR (MDRD) Non-Af Amer 121 mL/min >60 [facility] Work Phone: Comment on above: Non- GFR Calc Platelets bldon 02-02-2022 Platelets (Bld) [#/Vol] 229 10*3/uL 150-450 [facility] Work Phone: Serum or plasma albumin skinny urement (mass/volume)on 02-02-2022 Albumin [Mass/Vol] 3.7 g/dL 3.2-5.0 [facility] Work Phone: Serum or plasma albumin/glob ulin mass ratioon 02-02-2022 Albumin/Globulin [Mass ratio] 1.0 {ratio} 0.9-2.4 [facility] Work Phone: Serum or plasma calcium skinny urement (mass/volume)on 02-02-2022 Calcium [Mass/Vol] 8.8 mg/dL 8.5-10.1 [facility] Work Phone: Serum or plasma cholesterol in HDL measurement (mass/volume)on 02-02-2022 Cholesterol in HDL [Mass/Vol] 65 mg/dL >40 [facility] Work Phone: Comment on above: The drugs N-Acetylcy steine and Metamizole may falsely depress this assay. Reference Range HDL <40 mg/dL Low HDL Cholesterol HDL >or= 60 mg/dL High HDL Cholesterol Serum or plasma cholesterol in VLDL measurement (mass/volume)on 02-02-2022 Cholesterol in VLDL [Mass/Vol] 28 mg/dL 5-40 [facility] Work Phone: Serum or plasma creatinine m easurement (mass/volume)on 02-02-2022 Creatinine [Mass/Vol] 0.54 mg/dL 0.55-1.02 [facility] Work Phone: Comment on above: The validity of the calculated GFR & GFRAA in patients over 70 years has not been determined. Clinical correlation is essential. Serum or plasma low density lipoprotein (LDL) cholesterol measurement (mass/volume)on 02-02-2022 Cholesterol in LDL [Mass/Vol] 122 mg/dL 0-130 [facility] Work Phone: Serum or plasma urea nitroge n measurement (mass/volume)on 02-02-2022 Urea nitrogen [Mass/Vol] 12 mg/dL 7-18 [facility] Work Phone: Thin prep Papanicolaou smear with manual screeningon 02-02-2022 Thin prep Papanicolaou smear with manual screening 23 U/L 15-37 [facility] Work Phone: Thin prep Papanicolaou smear with manual screening 5 5-15 [facility] Work Phone: Office Visit: Spine Visit- U pper & low back painon 10-04-2016 Protein mass conc Done [facility] Work Phone: [phone] Office Visit: Benign lung ma sson 08-12-2016 Documentation of current medications (procedure) Done Invalid Interpretation Code [facility] Work Phone: Fall risk assessment No [facility] Work Phone: Tobacco smoking status ARIS Never [facility] Work Phone: Tobacco smoking status ARIS Never smoker [facility] Work Phone: [phone] Tobacco use [facility] Never smoker Invalid Interpretation Code [facility] Phone: Lab Report: Partial Thrombop last Timeon 02-07-2015 aPTT 31.2 s 24.1-36.2 [facility] Work Phone: Lab Report: Platelet Counton 02-07-2015 Platelets 398 10*3/mm3 Invalid Interpretation Code 150-450 [facility] Work Phone: Platelets #/vol (Bld) 398 10*3/mm3 150-450 [facility] Work Phone: [phone] Lab Report: Prothrombin Time w/INRon 02-07-2015 Coagulation tissue factor induced in platelet poor plasma 13.6 s 11.7-14.9 [facility] Work Phone: INR Coag RelTime (PPP) 1.0 {INR} [facility] Phone: [phone] INR in blood by coagulation 1.0 {INR} Invalid Interpretation Code [facility] Work Phone: Nurse Visit: TB results read on 02-03-2015 PPD results in mm 0 mm [facility] Work Phone: Lab Report: ANTINUCLEAR ANTI BODIES DIRECTon 01-31-2015 KATHRINE Titer Positive High Negative [facility] Work Phone: Nuclear Ab IA Qn (S) Positive High Negative [facility] Work Phone: [phone] Lab Report: ASO Titeron 01-04 ASO 6031 169.6 IU/mL 0.0-200.0 [facility] Work Phone: GE use only - for Link[employer]ic import when terms are not otherwise specified 169.6 IU/mL Invalid Interpretation Code 0.0-200.0 [facility] Work Phone: Lab Report: CRPon 01-30-2015 C reactive protein (CRP) 3.1 mg/dL High Units converted. See lab report for original value. [facility] Work Phone: Lab Report: Comprehensive Me tabolic Profilon 01-30-2015 Alanine aminotransferase (ALT) 38 U/L 12-78 [facility] Work Phone: Albumin 3.5 g/dL 3.4-5.0 [facility] Work Phone: Albumin/Globulin Ratio 0.8 {ratio} Low 0.9-2.4 [facility] Work Phone: Alkaline phosphatase (ALP) 165 U/L High 50-136 [facility] Work Phone: ALP enzyme act/vol (Bld) 165 U/L High 50-136 [facility] Work Phone: [phone] Anion gap 7 mmol/L Invalid Interpretation Code 5-15 [facility] Work Phone: Anion gap molar conc 7 mmol/L 5-15 [facility] Work Phone: [phone] Aspartate aminotransferase (AST) 22 U/L 15-37 [facility] Work Phone: Bilirubin (total) 0.40 mg/dL 0.20-1.00 [facility] Work Phone: BUN/Creatinine Ratio 16.6 RATIO 10-20 [facility] Work Phone: Calcium 8.7 mg/dL 8.5-10.1 [facility] Work Phone: Chloride 101 mmol/L 98-107 [facility] Work Phone: CO2 28.0 mmol/L Invalid Interpretation Code 21.0-32.0 [facility] Work Phone: CO2 ppres (BldV) 28.0 mmol/L 21.0-32.0 [facility] Work Phone: [phone] Creatinine 0.54 mg/dL Low 0.55-1.20 [facility] Work Phone: eGFR (non-black) 121 mL/min/{1.73_m2} >60 [facility] Work Phone: eGFR (non-black) 147 mL/min/{1.73_m2} Invalid Interpretation Code >60 [facility] Work Phone: EST GFR - AA 147 mL/min >60 [facility] Work Phone: [phone] Globulin 4.2 g/dL High 2.3-3.5 [facility] Work Phone: Globulin mass conc (S) 4.2 g/dL High 2.3-3.5 [facility] Work Phone: [phone] Glucose 84 mg/dL Invalid Interpretation Code 70-110 [facility] Work Phone: Glucose mass conc 84 mg/dL 70-110 [facility] Work Phone: [phone] Potassium 3.7 mmol/L 3.5-5.1 [facility] Work Phone: Protein 7.7 g/dL 6.4-8.2 [facility] Work Phone: Sodium 136 mmol/L 136-145 [facility] Work Phone: Urea nitrogen 9 mg/dL 7-18 [facility] Work Phone: Lab Report: Erythrocyte Sed Rateon 01-30-2015 Erythrocyte sedimentation rate 29 mm/h 0-30 [facility] Work Phone: Lab Report: Lipaseon 015 LIPASE 233 U/L 73-393 [facility] Work Phone: [phone] lipase, serum 233 U/L Invalid Interpretation Code 73-393 [facility] Work Phone: Replaced Document: (P) CBC W /Diff, Automatedon 01-30-2015 Basophils/100 leukocytes 0.4 % Invalid Interpretation Code 0-1 [facility] Work Phone: Basophils/100 WBC (Bld) 0.4 % 0-1 [facility] Work Phone: [phone] Eosinophils/100 leukocytes 1.0 % Invalid Interpretation Code 0-5 [facility] Work Phone: Eosinophils/100 WBC (Bld) 1.0 % 0-5 [email or web address] Work Phone: [phone] Erythrocyte distribution width Ratio (RBC) 42.5 fL 35.1-43.9 [email or web address] Work Phone: [phone] Erythrocyte distribution width Ratio (RBC) 12.9 % 11.6-14.6 [email or web address] Work Phone: [phone] Erythrocytes (RBC) 4.24 10*6/uL Invalid Interpretation Code 4.2-5.4 [facility] Work Phone: Hematocrit (HCT) 38.3 % Invalid Interpretation Code 37-47 [facility] Work Phone: Hematocrit Volume Fraction (Bld) 38.3 % 37-47 [email or web address] Work Phone: [phone] Hemoglobin (HGB) 12.9 g/dL 12.0-15.0 [facility] Work Phone: Immature granulocytes #/vol (Bld) 0.200 % 0.0-0.9 [facility] Work Phone: [phone] immature granulocytes, percentage of total cells, blood 0.200 % Invalid Interpretation Code 0.0-0.9 [facility] Phone: Lymphocytes 0.93 X10 3/UL Invalid Interpretation Code 0.83-4.51 [facility] Work Phone: Lymphocytes #/vol (Bld) 0.93 X10 3/UL 0.83-4.51 [facility] Work Phone: [phone] Lymphocytes/100 leukocytes 19.2 % Invalid Interpretation Code 19-41 [facility] Work Phone: Lymphocytes/100 WBC (Bld) 19.2 % 19-41 [email or web address] Work Phone: [phone] MCH 30.4 pg Invalid Interpretation Code 27.0-32.0 [facility] Work Phone: MCH Entitic mass (RBC) 30.4 pg 27.0-32.0 [facility] Work Phone: [phone] MCHC 33.7 G/GL Invalid Interpretation Code 32-36 [facility] Work Phone: MCHC mass conc (RBC) 33.7 G/GL 32-36 [facility] Work Phone: [phone] MCV 90.3 fL Invalid Interpretation Code 81-99 [facility] Work Phone: MCV Entitic volume (RBC) 90.3 fL 81-99 [facility] Work Phone: [phone] Monocytes/100 leukocytes 11.3 % High 0-10 [facility] Work Phone: Monocytes/100 WBC (Bld) 11.3 % High 0-10 [facility] Work Phone: [phone] neutrophil count, blood 3.3 X10 3/UL Invalid Interpretation Code 2.0-7.7 [facility] Work Phone: Neutrophils #/vol (Bld) 3.3 X10 3/UL 2.0-7.7 [facility] Work Phone: [phone] Neutrophils/100 leukocytes 67.9 % Invalid Interpretation Code 47-70 [facility] Work Phone: Neutrophils/100 WBC (Bld) 67.9 % 47-70 [facility] Work Phone: [phone] Platelet mean volume Entitic volume (Bld) 9.5 fL 6.2-12.0 [facility] Work Phone: [phone] PMV by Seema 9.5 fL Invalid Interpretation Code 6.2-12.0 [facility] Work Phone: RBC #/vol (Bld) 4.24 10*6/uL 4.2-5.4 [facility] Work Phone: [phone] RDW-CA 12.9 % Invalid Interpretation Code 11.6-14.6 [facility] Work Phone: red blood cell distribution width, size density 42.5 fL Invalid Interpretation Code 35.1-43.9 [facility] Work Phone: WBC #/vol (Bld) 4.9 10*3/uL 4.4-11.0 [facility] Work Phone: [phone] WBC (Leukocytes) 4.9 10*3/uL Invalid Interpretation Code 4.4-11.0 [facility] Work Phone: External Other: Preferred Me thod of Contacton 06-23-2014 methcontact secmsg [facility] Work Phone: Patient's prefered method of contact secmsg Invalid Interpretation Code [facility] Work Phone: Vital Signs Date Time Vital Sign Value Performing Clinician Facility 02-02-2022 10:52-0400 Body height 160.[address] Noemi Pruitt Work Phone: [facility] Work Phone: 08-12-2016 09:45-0400 BMI (Body Mass Index) 22.31 kg/m2 Mirian Carrillo [facility] Work Phone: 08-12-2016 09:45-0400 Body Temperature 97 [degF] Mirian Carrillo [facility] Work Phone: 08-12-2016 09:45-0400 BP Diastolic 78 mm[Hg] Mirian Carrillo [facility] Work Phone: 08-12-2016 09:45-0400 BP Systolic 131 mm[Hg] Mirian Carrillo [facility] Work Phone: 08-12-2016 09:45-0400 Height 162.56 cm Mirian Carrillo [facility] Work Phone: 08-12-2016 09:45-0400 Pulse (Heart Rate) 63 /min Mirian Carrillo [facility] Work Phone: 08-12-2016 09:45-0400 Pulse Oximetry 97 % Mirian Carrillo [facility] Work Phone: 08-12-2016 09:45-0400 Respiratory Rate 18 /min Mirian Gerardo [facility] Work Phone: 08-12-2016 09:45-0400 Weight 58.97 kg Mirian Carrillo [facility] Work Phone: 08-20-2015 09:52-0400 Body Temperature 97.16 [degF] Mirian Carrillo [facility] Work Phone: 08-20-2015 09:52-0400 Weight 61.36 kg Mirianre Carrillo [facility] Work Phone: 03-03-2015 12:31-0500 BSA (Body Surface Area) 1.65 m2 Mirian Carrillo [facility] Work Phone: Encounters Encounter Date Encounter Type Care Provider Facility Start: 02-01-2025 End: [facility] Start: 02-22-2024 End: 02-22-2024 [facility] Start: 02-11-2023 End: 02-11-2023 ambulatory [facility] Work Phone: Start: 02-11-2023 End: 02-11-2023 Patient encounter procedure [facility] Start: 02-02-2022 End: 02-02-[address] Noemi Pruitt Work Phone: [facility] Work Phone: Start: 02-02-2022 End: 02-02-[address] Noemi Pruitt Work Phone: [facility] Start: 01-25-2022 End: 01-25-[address] Noemi Pruitt Work Phone: [facility] Start: 01-18-2022 End: 01-18-[address] Noemi Pruitt Work Phone: [facility] Procedures Date Procedure Procedure Detail Performing Clinician Start: 02-02-2022 Dual energy X-ray absorptiometry Dr. Noemi Pruitt Work Phone: Start: 02-02-[address] Noemi Pruitt Work Phone: Start: 10-04-2016 End: 10-04-2016 Chiropractic manipulative tx spinal 3-4 regions Antoinette B Dossi DC Work Phone: Start: 05-13-2016 End: 05-13-2016 Chiropractic manipulation Antoinette B Dossi DC Work Phone: Start: 05-06-2016 End: 05-06-2016 Chiropractic manipulation Antoinette B Dossi DC Work Phone: Start: 05-06-2016 End: 05-06-2016 Electric stimulation therapy Antoinette B Dossi DC Work Phone: Start: 05-06-2016 End: 05-06-2016 Mechanical traction therapy Antoinette B Dossi DC Work Phone: Start: 04-29-2016 End: 04-29-2016 Chiropractic manipulation Antoinette B Dossi DC Work Phone: Start: 04-29-2016 End: 04-29-2016 Electric stimulation therapy Antoinette B Dossi DC Work Phone: Start: 02-05-2015 End: 02-07-2015 aPTT Sony Soo Raul CACERES Work Phone: Start: 02-05-2015 End: 02-07-2015 Coagulation factor induced.INR assay in platelet poor plasma Sony Cormierman Work Phone: Start: 02-05-2015 End: 02-07-2015 Platelets Sony Carter Work Phone: Start: 01-30-2015 End: 01-31-2015 *KATHRINE Sony Carter DO Work Phone: Start: 01-30-2015 End: 01-30-2015 *CBC with Differential Sony Beauchamp O Work Phone: Start: 01-30-2015 End: 01-30-2015 *CMP Complete Metabolic Panel Sony Carter DO Work Phone: Start: 01-30-2015 End: 01-31-2015 C reactive protein (hsCRP) Sony leonard DO Work Phone: Start: 01-30-2015 End: 01-30-2015 Erythrocyte sedimentation rate Sony Carter DO Work Phone: Start: 01-30-2015 End: 01-30-2015 Lipase Sony Carter DO Work Phone: Start: 01-30-2015 Screening for malignant neoplasm of breast Screening for breast cancer Antoinette Butler DC Start: 01-30-2015 End: 01-31-2015 Streptolysin O antibody Sony Carter DO Work Phone: Plan of Treatment Date Care Activity Detail Author Start: 02-22-2025 ambulatory Ambulatory Facility:[facility] Start: 10-04-2016 End: 10-04-2016 Appointment Appointment [facility] Work Phone: Start: 08-12-2016 End: 08-12-2016 Appointment Appointment [facility] Phone: Start: 08-02-2016 End: 08-20-2015 Ct thorax w/o dye CT Chest without contrast [facility] Phone: Start: 08-02-2016 End: 08-20-2015 Pulmonary Function Test - complete Pulmonary Function Test - complete [facility] Phone: Start: 05-06-2016 End: 05-06-2016 Follow up Appt 1x/week Follow up Appt 1x/week [facility] Phone: Start: 08-20-2015 End: 08-20-2015 Follow Up Appt 1 year Follow Up Appt 1 year [facility] Phone: Start: 08-03-2015 End: 05-22-2015 Ct thorax w/o dye CT Chest without contrast [facility] Phone: Start: 05-22-2015 End: 05-22-2015 Follow Up Appt 3 months Follow Up Appt 3 months [facility] Phone: Start: 03-03-2015 End: 03-03-2015 Immunization admin Administration Immunization >=8 years of age [facility] Phone: Start: 02-17-2015 End: 02-17-2015 Follow Up Appt 3 months Follow Up Appt 3 months [facility] Phone: Start: 02-17-2015 End: 02-17-2015 Pulmonary Function Test - complete Pulmonary Function Test - complete [facility] Phone: Start: 02-05-2015 End: 02-05-2015 *MISC - Miscellaneous Lab Test #1 *MISC - Miscellaneous Lab Test #1 [facility] Phone: Start: 02-05-2015 End: 02-07-2015 aPTT *PTT-Partial Thromboplastin Time [facility] Phone: Start: 02-05-2015 End: 02-07-2015 aPTT Coag time (PPP) *PTT-Partial Thromboplastin Time [employer] Phone: Start: 02-05-2015 End: 02-07-2015 Coagulation factor induced.INR assay in platelet poor plasma *PT/INR [facility] Phone: Start: 02-05-2015 End: 02-07-2015 Platelets *Platelet Count [facility] Phone: Start: 02-05-2015 End: 02-07-2015 Platelets #/vol (Bld) *Platelet Count [employer] Work Phone: Start: 01-31-2015 End: 01-31-2015 Ct thorax w/dye CT Chest with Contrast [facility] Phone: Start: 01-30-2015 End: 01-31-2015 *KATHRINE *KATHRINE [facility] Phone: Start: 01-30-2015 End: 01-30-2015 *CBC with Differential *CBC with Differential [facility] Phone: Start: 01-30-2015 End: 01-30-2015 *CMP Complete Metabolic Panel *CMP Complete Metabolic Panel [facility] Phone: Start: 01-30-2015 End: 01-31-2015 C reactive protein (hsCRP) *CRP - C-Reative Protein [facility] Phone: Start: 01-30-2015 End: 01-30-2015 Chest x-ray X-Ray, Chest, PA & Lateral [facility] Phone: Start: 01-30-2015 End: 01-30-2015 Erythrocyte sedimentation rate *Sedimentation Rate (ESR) [facility] Phone: Start: 01-30-2015 End: 01-30-2015 Lipase *Lipase [facility] Phone: Start: 01-30-2015 End: 01-30-2015 Mammogram, screening Mammogram, Screening, both breasts [facility] Phone: Start: 01-30-2015 End: 01-31-2015 Streptolysin O antibody *ASO - Antistreptolysin O-Titer [facility] Phone: Start: 06-05-2014 End: 06-05-2014 Follow Up Appt 6 months Follow Up Appt 6 months [facility] Phone: Immunizations Immunization Date Immunization Notes Care Provider Fa marek 03-03-2015 influenza, injectabl e, madin rach canine kidney, preservative free Mirian Carrillo [facility] Phone: Payers Date Payer Category Payer Self-pay [id number] 2024 Private Health Insurance [id number] Medicare MEDICARE PART B ONLY [id number] [facility] [id number] Unknown [id number] Unknown [id number] Social History Date Type Detail Facility Start: 01-25-2022 End: 03-22-2022 Tobacco smoking status NHIS Unknown if ever smoked [facility] Start: 11-09-2018 Non-smoker [facility] Start: 1955 Sex Assigned At Female W [facility] Goals Date Patient Goal Desired Activity /State Evaluation note Note Date & Type Note Facility Evaluation note Diagnosis Onset Date Back pain acute Segmental and somatic dysfun ction of cervical region acute Segmental and somatic dysfun ction of lumbar region acute Segmental and somatic dysfun ction of thoracic region acute Back pain acute Segmental and somatic dysfun ction of cervical region acute Segmental and somatic dysfun ction of lumbar region acute Segmental and somatic dysfun ction of thoracic region acute [facility] Work Phone: Evaluation note Note Date & Type Note Facility Evaluation note No assessment information availa ble [facility] Work Phone: Chief Complaint and Reason for Visit Chief Complaint REEVAL MID BACK PAIN MID BACK PAIN LABS/SCREENING Reason for Visit Back pain Segmental and somatic dysfunction of cervical region Segmental and somatic dysfunction of lumbar region Segmental and somatic dysfunction of thoracic region Back pain Segmental and somatic dysfunction of cervical region Segmental and somatic dysfunction of lumbar region Segmental and somatic dysfunction of thoracic region Advance Directives No Advanced Directives Records Found Advance Directive Response Recorded Date/ Time Advance Directives No May 3:01pm Living Will No November 09, 2018 10:40am Power of Laser Beam Cutter No November 09 10:40am Summary Purpose Family History No Family History Records Found Additional Source Comments Care Teams (unrecognized sec tion and content) Team Status: Active Member Role Status Dates Dr. Noemi Pruitt DO Family Provider Active Dr. Noemi Pruitt DO Primary Care Provider Active Team Status: Inactive Member Role Status Dates Dr. Noemi Pruitt DO Primary Care Provide r, Attending Provider, Referring Provider Active INFORMATION SOURCE (unrecogn ized section and content) DATE CREATED AUTHOR 02/12/2025 [facility] FOR RECORDS PERTAINING TO PATIENTS WHO ARE OR HAVE BEEN ENROLLED IN A CHEMICAL DEPENDENCY/SUBSTANCEABUSE PROGRAM, SOME INFORMATION MAY BE OMITTED. This clinical summary was aggregated from multiple sources. Caution should be exercised in using it in the provision of clinical care. This summary normalizes information from multiple sources, and as a consequence, information in this document may materially change the coding, format and clinical context of patient data. In addition, data may be omitted in some cases. CLINICAL DECISIONS SHOULD BE BASED ON THE PRIMARY CLINICAL RECORDS. [employer] provides no warranty or guarantee of the accuracy or completeness of information in this document.
== END | disposition home or self-care (01) ==
LOC: OPBI 07:17
PROVIDERS: PCP Family Medicine; Referring Provider Family Medicine; Visit Provider Family Medicine
DX: Z12.31 Encounter for screening mammogram for malignant neoplasm of breast (principal)
CPT/HCPCS: 77063; 77067